=== PATIENT | male | born 1935 | race Caucasian/White ===

== ENCOUNTER 2017-06-20 06:46 | Emergency (ER) | payer MEDICARE, OTHER ==
[2017-06-20 07:08] VITALS: BP 152/90
--- NOTE | 2017-06-20 07:10 | EDM.PDOC ---
ED HPI GENERAL MEDICAL PROBLEM - General Chief Complaint: Gastrointestinal Problem Stated Complaint: BLOOD IN STOOL Time Seen by Provider: 06/20/17 07:04 Source of Information: Reports: Patient History Limitations: Reports: No Limitations - History of Present Illness INITIAL COMMENTS - FREE TEXT/NARRATIVE: 82-year-old male presents to the ED with diarrhea stools since about 2100 last night. Sudden onset with mild associated cramping pain. States the diarrhea was bad enough that he was on the next toilet nearly consistently for 4-5 hours during the night. Stool surgeon noted to be bloody about midnight and have persisted. The last rebound once again. Blood. Associated mild abdominal cramping pain. No fever or chills. No recent antibiotic usage in the last month. Possibility of foodborne illness does exist easy noted a yesterday morning mostly excelled salvage and hamstring temperatures. States she did have peptic ulcer disease in the past 15 years ago was on Prevacid after an upper GI bleed. Currently not using any anti-inflammatories or aspirins. He takes one a medication for his blood pressure. No previous abdominal surgery. Onset: Sudden Onset Date: 06/19/17 Onset Time: 21:00 Duration: Hour(s): Location: Reports: Other (diarrhea with rectal bleeding. ) Quality: Reports: Other (Very mild cramping.) Severity: Moderate Improves with: Reports: None (Bleeding per rectum was moderate to severe. The last rebound once were. Blood) Worsens with: Reports: None Context: Denies: Activity, Exercise, Lifting, Sick Contact, Trauma, Other Associated Symptoms: Reports: No Other Symptoms. 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.) - Related Data Allergies Allergy/AdvReac Type Severity Reaction Status Date / Time No Known Allergies Allergy Verified 06/20/17 07:02 Home Meds: Home Meds Ciprofloxacin HCl [Cipro] 500 mg PO BID #12 tablet 06/20/17 [Rx] Past Medical History Cardiovascular History: Reports: Hypertension Gastrointestinal History: Reports: Gastritis, GERD, GI Bleed, PUD Musculoskeletal History: Reports: Arthritis, Osteoarthritis Social & Family History - Living Situation & Occupation Living situation: Reports: Single Occupation: Retired ED ROS GENERAL - Review of Systems Review Of Systems: See Below Constitutional: Denies: Fever, Chills, Malaise, Weakness, Fatigue, Weight Loss HEENT: Reports: No Symptoms, Other (poor dentition. ) Respiratory: Reports: No Symptoms Cardiovascular: Reports: No Symptoms Endocrine: Reports: No Symptoms GI/Abdominal: Reports: Diarrhea, Melena. Denies: Abdominal Pain : Reports: Frequency, Other (nocturia x 3. ) Skin: Reports: No Symptoms Neurological: Reports: No Symptoms Psychiatric: Reports: No Symptoms ED EXAM, GI/ABD - Physical Exam Exam: See Below Exam Limited By: No Limitations General Appearance: Alert, WD/WN, No Apparent Distress Eyes: Bilateral: Normal Appearance Throat/Mouth: Other (tongue is moderately dry and white coated. ) Neck: Normal Inspection, Supple, Non-Tender, Full Range of Motion. No: Carotid Bruit, Lymphadenopathy (L), Lymphadenopathy (R) Respiratory/Chest: No Respiratory Distress, Lungs Clear, Normal Breath Sounds, No Accessory Muscle Use, Chest Non-Tender Cardiovascular: Normal Peripheral Pulses, Regular Rate, Rhythm, No Edema, No Gallop GI/Abdominal Exam: Abnormal Bowel Sounds ( hyperactive in all 4 quadrants. ) Back Exam: Normal Inspection, Full Range of Motion. No: CVA Tenderness (L), CVA Tenderness (R) Extremities: Normal Inspection, Normal Range of Motion, Non-Tender, No Pedal Edema, Normal Capillary Refill Neurological: Alert, Oriented, CN II-XII Intact, Normal Cognition, Normal Gait Psychiatric: Normal Affect, Normal Mood Skin Exam: Warm, Dry, Intact, Normal Color, No Rash Course - Vital Signs Last Recorded V/S: Last Vital Signs Temp 36.6 C 06/20/17 07:00 Pulse 103 H 06/20/17 07:00 Resp 16 06/20/17 07:00 BP 152/90 H 06/20/17 07:00 Pulse Ox 100 06/20/17 07:00 Orthostatic Blood Pressure [ 136/89 Standing] Orthostatic Blood Pressure [ 143/99 Sitting] Orthostatic Blood Pressure [ 136/93 Supine] - Orders/Labs/Meds Orders: Active Orders 24 hr Category Date Time Status Orthostatic Vital Signs [RC] ASDIRECTED Care 06/20/17 07:03 Active CULTURE STOOL + SHIGATOX [RM] Stat Lab 06/20/17 08:00 Received Labs: Laboratory Tests 06/20/17 06/20/17 06/20/17 Range/Units 07:25 07:25 07:25 WBC 12.79 H (4.23-9.07) K/mm3 RBC 4.65 (4.63-6.08) M/mm3 Hgb 15.4 (13.7-17.5) gm/L Hct 43.3 (40.1-51.0) % MCV 93.1 H (79.0-92.2) fl MCH 33.1 H (25.7-32.2) pg MCHC 35.6 H (32.2-35.5) g/dl RDW Std Deviation 45.2 H (35.1-43.9) fL Plt Count 251 (163-337) K/mm3 MPV 9.7 (9.4-12.3) fl Neutrophils % (Manual) 84 H (40-60) % Band Neutrophils % 2 (0-10) % Lymphocytes % (Manual) 14 L (20-40) % Atypical Lymphs % 0 % Monocytes % (Manual) 0 L (2-10) % Eosinophils % (Manual) 0 L (0.8-7.0) % Basophils % (Manual) 0 L (0.2-1.2) Platelet Estimate Adequate Plt Morphology Comment Normal RBC Morph Comment Normal PT 11.2 (8.0-13.0) SECONDS INR 1.03 APTT 28 (22-36) SECONDS Sodium 139 (136-145) mEq/L Potassium 3.5 (3.5-5.1) mEq/L Chloride 103 (98-107) mEq/L Carbon Dioxide 24 (21-32) mEq/L Anion Gap 15.5 H (5-15) BUN 23 H (7-18) mg/dL Creatinine 1.2 (0.7-1.3) mg/dL Est Cr Clr Drug Dosing 42.63 mL/min Estimated GFR (MDRD) 58 (>60) mL/min BUN/Creatinine Ratio 19.2 H (14-18) Glucose 154 H (83-115) mg/dL Calcium 9.1 (8.5-10.1) mg/dL Total Bilirubin 1.0 (0.2-1.0) mg/dL AST 22 (15-37) U/L ALT 24 (16-63) U/L Alkaline Phosphatase 66 (46-116) U/L Total Protein 7.0 (6.4-8.2) g/dl Albumin 3.5 (3.4-5.0) g/dl Globulin 3.5 gm/dL Albumin/Globulin Ratio 1.0 (1-2) Blood Type 06/20/17 Range/Units 07:25 WBC (4.23-9.07) K/mm3 RBC (4.63-6.08) M/mm3 Hgb (13.7-17.5) gm/L Hct (40.1-51.0) % MCV (79.0-92.2) fl MCH (25.7-32.2) pg MCHC (32.2-35.5) g/dl RDW Std Deviation (35.1-43.9) fL Plt Count (163-337) K/mm3 MPV (9.4-12.3) fl Neutrophils % (Manual) (40-60) % Band Neutrophils % (0-10) % Lymphocytes % (Manual) (20-40) % Atypical Lymphs % % Monocytes % (Manual) (2-10) % Eosinophils % (Manual) (0.8-7.0) % Basophils % (Manual) (0.2-1.2) Platelet Estimate Plt Morphology Comment RBC Morph Comment PT (8.0-13.0) SECONDS INR APTT (22-36) SECONDS Sodium (136-145) mEq/L Potassium (3.5-5.1) mEq/L Chloride (98-107) mEq/L Carbon Dioxide (21-32) mEq/L Anion Gap (5-15) BUN (7-18) mg/dL Creatinine (0.7-1.3) mg/dL Est Cr Clr Drug Dosing mL/min Estimated GFR (MDRD) (>60) mL/min BUN/Creatinine Ratio (14-18) Glucose (83-115) mg/dL Calcium (8.5-10.1) mg/dL Total Bilirubin (0.2-1.0) mg/dL AST (15-37) U/L ALT (16-63) U/L Alkaline Phosphatase (46-116) U/L Total Protein (6.4-8.2) g/dl Albumin (3.4-5.0) g/dl Globulin gm/dL Albumin/Globulin Ratio (1-2) Blood Type A POSITIVE Meds: Medications Discontinued Medications Generic Name Dose Route Start Last Admin Trade Name Colby PRN Reason Stop Dose Admin Sodium Chloride 1,000 mls @ 125 mls/hr 06/20/17 07:15 06/20/17 07:38 Normal Saline IV 125 mls/hr ASDIRECTED ARVIN Administration Lidocaine HCl Confirm 06/20/17 07:35 06/20/17 07:44 Xylocaine 2% Jelly Administered 06/20/17 07:36 Not Given Dose 10 ml .ROUTE .STK-MED ONE Lidocaine HCl 10 ml 06/20/17 07:43 06/20/17 07:44 Xylocaine 2% Jelly MUCMEM 06/20/17 07:44 10 ml ONETIME ONE Administration - Radiology Interpretation Free Text/Narrative:: 82-year-old male presents to the ED with complaints of sudden onset of diarrhea stools 2100 hrs. last night with development of blood per rectum. The last 3 bowel movements have been. Blood per rectum and bright red in color. No pain with bowel movements. So she did diffuse abdominal cramping discomfort. No recent use of any antibiotics. Possibility of foodborne illness does exist as he ate out at a yesterday afternoon yesterday morning. No associated fever or chills. Satted upper GI bleed in the past but at present doesn't had any gastroesophageal symptoms. No dyspepsia. No odynophagia. Plan orthostatic BPs. IV normal saline at 150 mils per hour. Routine labs include coags. He does not take any blood thinners. Will arrange for sigmoidoscopy. - Re-Assessments/Exams Free Text/Narrative Re-Assessment/Exam: 06/20/17 07:33 Orthosatic BP`s are normal. 06/20/17 08:01 Rigid sigmoidoscopy performed without any complications. Went up to 16 cm and all encountered was bloody mucus. No significant hemorrhoids or anal fissures. No tumors or obvious abnormalities of the lower colon were identified. The blood and mucus has the appearance of the dysentery type of illness. Cultures were obtained and sent to the lab to microbiology. When they will do a Gram stain and look for white blood cells. The rest will be for culture. I will likely patient placed the patient on Cipro 500 mg twice daily for 6 days to clear up suspect infective diarrhea. 06/20/17 08:31 labs reveal a slightly elevated white count at 12.79 with 84% neutrophils and 2% bands. Hemoglobin is 15.4 with hematocrit of 43.3. Placed in 1000. Coags are normal. Chemistry shows a sodium of 139 potassium 3.5 chloride 103 bicarbonate 24. And a gap is 15.5 B1 is 23 glucose 154. As above the patient be treated for dysenteric-like illness with Cipro 500 mg twice a day for 6 days. Clear fluid diet avoiding all dairy products and no apple juice or grape juice until stools are formed back up. Departure - Departure Time of Disposition: 08:32 Disposition: Home, Self-Care 01 Condition: Fair Clinical Impression: Bacterial dysentery, Gastroenteritis - Discharge Information Prescriptions: Ciprofloxacin HCl [Cipro] 500 mg PO BID #12 tablet Instructions: Food Poisoning, Caun-ag-Bhzy Referrals: Cesar Ballard MD [Primary Care Provider] - Forms: ED Department Discharge Additional Instructions: Evaluation in the emergency room this morning in regards to development of diarrhea with blood and mucus. Into started last dated 2100 hrs. and persisted over the night. Last bowel movement was around 1:00 this morning which was mostly bloody. Associated mild abdominal cramping pain. No fever or chills. Had a look up into the lower colon with a short scope and encountered only blood and mucus characteristic of dysentery or bacterial infection of the GI tract. Therefore treatment is diet to be mostly clear fluids today such as Gatorade or Powerade as this will rehydrate you so much IV fluids. Suggest 5 ounces sipped per hour. Stay away from all dairy products and no apple juice or grape juice. When hungry made try soda crackers if tolerated may advance to light soup broth or turkey rice turkey noodle noodle-type soup etc. May then advance diet to toast, breads, hard-boiled egg or poached eggs.. Treatment is antibiotic Cipro 500 mg twice daily starting this morning. This was to be taken for 6 days. You should be markedly improved within 48 hours time. Usually able to resume full diet once stools are formed backup may resume dairy products etc. If not better in 48-72 hours I still blood and cramps or diarrhea you would need to be seen again. - My Orders Last 24 Hours: My Active Orders 06/20/17 07:03 Orthostatic Vital Signs [RC] ASDIRECTED 06/20/17 08:00 CULTURE STOOL + SHIGATOX [RM] Stat - Assessment/Plan Last 24 Hours: My Active Orders 06/20/17 07:03 Orthostatic Vital Signs [RC] ASDIRECTED 06/20/17 08:00 CULTURE STOOL + SHIGATOX [RM] Stat
[2017-06-20] MEDS ORDERED: Sodium Chloride 0.9% 1,000 ML IV SCH (07:15)
[2017-06-20] MEDS ORDERED: Lidocaine 2% Jelly 10 ML Urojet ONE (07:35)
[2017-06-20] MEDS ORDERED: Lidocaine 2% Jelly 10 ML Urojet MUCMEM ONE (07:43)
== END 2017-06-20 08:40 | disposition home or self-care (01) ==
LOC: JD.ED 06:46
DX: A04.9 Bacterial intestinal infection, unspecified (principal); I10 Essential (primary) hypertension; K21.9 Gastro-esophageal reflux disease without esophagitis; M19.90 Unspecified osteoarthritis, unspecified site; K92.1 Melena
CPT/HCPCS: 36415; 45300; 80053; 85025; 85610; 85730; 86900; 86901; 87046; 87427; 89055; 96360; 99284; J7040

== ENCOUNTER 2018-12-31 09:29 | Inpatient (IN) | payer MEDICARE, OTHER ==
[~2018-12-31 09:29] MED LIST: Acetaminophen/oxyCODONE 325-5 MG Tab PO PRN; Bupivacaine 0.75% 30 ML SDV ONE; Ketorolac 15 MG/ML SDV IVPUSH PRN; Lactated Ringers 1,000 ML IV SCH; Lidocaine 1% 4 ML ONE; Lidocaine 1%/Sod Bicarbonate in NS 8.4% 1 ML Syringe IDERM PRN; Propofol 200 MG/20 ML SDV ONE; Sodium Chloride 0.9% 10 ML Syringe FLUSH PRN; ceFAZolin 1 GM Vial ONE; fentaNYL 100 MCG/2 ML SDV IVPUSH PRN
--- NOTE | 2018-12-31 10:30 | PCM.PREANE ---
Preanesthetic Assessment - Procedure Proposed Procedure: Left Total Hip arthroplasty - Anesthesia/Transfusion/Family Hx Anesthesia History: No Prior Anesthesia Family History of Anesthesia Reaction: No Transfusion History: Prior Transfusion Without Reaction - Review of Systems General: No Symptoms Pulmonary: No Symptoms Cardiovascular: No Symptoms Gastrointestinal: No Symptoms Neurological: No Symptoms Other: Reports: None - Physical Assessment NPO Status Date: 12/31/18 NPO Status Time: 07:00 (water ) O2 Sat by Pulse Oximetry: 98 Respiratory Rate: 16 Vital Signs: Last Vital Signs Temp 36.8 C 12/31/18 09:50 Pulse 78 12/31/18 09:50 Resp 16 12/31/18 09:50 BP 138/82 12/31/18 09:50 Pulse Ox 98 12/31/18 09:50 ASA Class: 2 Mental Status: Alert & Oriented x3 Airway Class: Mallampati = 1 Dentition: Reports: Partial (upper partial denture ) ROM/Head Extension: Full Lungs: Clear to Auscultation, Normal Respiratory Effort Cardiovascular: Regular Rate, Regular Rhythm - Lab Values: Laboratory Last Values MRSA (PCR) Negative 12/19/18 09:06 - Allergies Allergies/Adverse Reactions: Allergies Allergy/AdvReac Type Severity Reaction Status Date / Time No Known Allergies Allergy Verified 12/28/18 14:38 - Anesthesia Plan Pre-Op Medication Ordered: None - Acknowledgements Anesthesia Type Planned: Spinal Pt an Appropriate Candidate for the Planned Anesthesia: Yes Alternatives and Risks of Anesthesia Discussed w Pt/Guardian: Yes Pt/Guardian Understands and Agrees with Anesthesia Plan: Yes PreAnesthesia Questionnaire HEENT History: Reports: Impaired Vision, Other (See Below) Other HEENT History: missing teeth. Wears eyeglasses. Cardiovascular History: Reports: Hypertension Respiratory History: Reports: None Gastrointestinal History: Reports: Gastritis, GERD, GI Bleed, PUD Other Gastrointestinal History: gastric ulcer. 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 Musculoskeletal History: Reports: Arthritis, Osteoarthritis Neurological History: Reports: None Psychiatric History: Reports: Other (See Below) Other Psychiatric History: insomnia Endocrine/Metabolic History: Reports: None Hematologic History: Reports: Anemia, Blood Transfusion(s) Immunologic History: Reports: None Oncologic (Cancer) History: Reports: None Dermatologic History: Reports: Other (See Below) Other Dermatologic History: skin disorder - Infectious Disease History Infectious Disease History: Reports: Chicken Pox, Measles, Mumps - Past Surgical History Head Surgeries/Procedures: Reports: None Cardiovascular Surgical History: Reports: None Respiratory Surgical History: Reports: None GI Surgical History: Reports: EGD Female Surgical History: Reports: None Male Surgical History: Reports: None Neurological Surgical History: Reports: None Musculoskeletal Surgical History: Reports: None Oncologic Surgical History: Reports: None - SUBSTANCE USE Smoking Status *Q: Former Smoker Second Hand Smoke Exposure: No Recreational Drug Use History: No - HOME MEDS Home Medications: Home Meds Ibuprofen 200 mg PO Q4H PRN 12/28/18 [History] Lisinopril/Hydrochlorothiazide [Lisinopril-Hctz 20-12.5 mg Tab] 1 tab PO DAILY 12/28/18 [History] Zolpidem Tartrate [Ambien] 5 mg PO BEDTIME PRN 12/28/18 [History] amLODIPine [Norvasc] 5 mg PO DAILY 12/28/18 [History] - CURRENT (IN HOUSE) MEDS Current Meds: Current Medications Morphine Sulfate 8 mg/Epinephrine HCl 0.3 mg/Cefuroxime Sodium 750 mg/Ketorolac Tromethamine 30 mg/Sodium Chloride 27.9 ml 0 mg .XX ONETIME ONE Stop: 12/31/18 11:01 Docusate Sodium (Colace) 100 mg PO BID [facility] Fentanyl (Sublimaze) 25 mcg IVPUSH Q5M PRN PRN Reason: Pain Lactated Ringer's (Ringers, Lactated) 1,000 mls @ 125 mls/hr IV ASDIRECTED [facility] Cefazolin Sodium/Dextrose 2 gm (/ Premix) 50 mls @ 100 mls/hr IV Q8H [facility] Stop: 12/31/18 23:29 Ketorolac Tromethamine (Toradol) 15 mg IVPUSH Q6H PRN PRN Reason: Pain Lidocaine/Sodium Bicarbonate (Buffered Lidocaine 1% In Ns 8.4%) 0.25 ml IDERM ONETIME PRN PRN Reason: Prior to IV Start Stop: 12/31/18 16:00 Oxycodone/Acetaminophen (Percocet 325-5 Mg) 1 - 2 tab PO Q4H PRN PRN Reason: Pain Rivaroxaban (Xarelto) 10 mg PO DAILY [facility] Sodium Chloride (Saline Flush) 10 ml FLUSH ASDIRECTED PRN PRN Reason: Keep Vein Open Discontinued Medications Bupivacaine HCl (Sensorcaine-Mpf 0.75%) Confirm Administered Dose 30 ml .ROUTE .STK-MED ONE Stop: 12/31/18 09:24 Cefazolin Sodium (Ancef) Confirm Administered Dose 2 gm .ROUTE .STK-MED ONE Stop: 12/31/18 09:19 Lidocaine HCl (Xylocaine-Mpf 1%) Confirm Administered Dose 4 mls @ as directed .ROUTE .STK-MED ONE Stop: 12/31/18 09:19 Lidocaine HCl (Xylocaine-Mpf 1%) Confirm Administered Dose 5 mls @ as directed .ROUTE .STK-MED ONE Stop: 12/31/18 09:24 Propofol (Diprivan 20 Ml) Confirm Administered Dose 400 mg .ROUTE .STK-MED ONE Stop: 12/31/18 09:19
[2018-12-31] MEDS ORDERED: Iodine/Sodium Iodide 2% Tincture 30 ML Bottle ONE (10:45)
[2018-12-31] MEDS ORDERED: ceFAZolin 1 GM Vial ONE (10:45)
[2018-12-31] MEDS ORDERED: Vancomycin 1 GM SDV ONE (10:45)
[2018-12-31] MEDS ORDERED: Bupivacaine 0.25% 30 ML SDV ONE (10:45)
[2018-12-31] MEDS ORDERED: Phenylephrine/Normal Saline 100 MCG/ML 10 ML Syringe ONE ×2 (12:52→12:54)
[2018-12-31] MEDS ORDERED: Ketamine 500 mg/10 ML MDV ONE (13:10)
[2018-12-31] MEDS ORDERED: Lactated Ringers 1,000 ML ONE (13:33)
[2018-12-31] MEDS ORDERED: Propofol 200 MG/20 ML SDV ONE (13:44)
[2018-12-31] MEDS: Morphine 8 MG, EPINEPHrine 0.3 MG, Cefuroxime 750 MG, Ketorolac 30 MG, Sodium Chloride ... ONE ×10 (13:52→19:22)
[2018-12-31] MEDS ORDERED: ePHEDrine/Normal Saline 25 MG/5 ML Syringe ONE (13:57)
[2018-12-31] MEDS ORDERED: Zolpidem 5 MG Tab PO PRN (14:15)
[2018-12-31] MEDS ORDERED: Acetaminophen/HYDROcodone 325-5 MG Tab PO PRN (14:31)
[2018-12-31] MEDS ORDERED: Ondansetron 4 MG/2 ML SDV IVPUSH PRN (14:35)
--- NOTE | 2018-12-31 14:35 | PCM.POSTAN ---
POST ANESTHESIA ASSESSMENT - MENTAL STATUS Mental Status: Alert - VITAL SIGNS Pulse Rate: 80 SaO2: 98 Resp Rate: 16 Blood Pressure: 114/57 Temperature: 36.4 C - RESPIRATORY Respiratory Status: Respiratory Rate WNL, Airway Patent, O2 Saturation Stable, Supplemental Oxygen - CARDIOVASCULAR CV Status: Pulse Rate WNL, Blood Pressure Stable - GASTROINTESTINAL GI Status: No Symptoms - PAIN Pain Score: 0 - POST OP HYDRATION Hydration Status: Adequate & Stable
--- NOTE | 2018-12-31 15:36 | CR ---
Pelvis and left hip: AP view of the pelvis was obtained as well as crosstable lateral view of the left hip. Comparison: No prior pelvis or hip exam. Left hip prosthesis is seen. Components are aligned. Soft tissue air is noted from the surgical procedure. Degenerative change is partially visualized within the lower lumbar spine. Moderate joint space narrowing is seen within the right hip. No fracture or other abnormality is appreciated. Osteopenia is noted. Impression: 1. Recently placed left hip prosthesis. 2. Other degenerative change as noted above. Osteopenia. Diagnostic code #2
--- NOTE | 2018-12-31 18:14 | PCM.CONS ---
H&P History of Present Illness - General Date of Service: 12/31/18 Admit Problem/Dx: Admission Diagnosis/Problem Admission Diagnosis/Problem Osteoarthritis of hip - History of Present Illness Initial Comments - Free Text/Narative: Hospital service was called and assisted on this 83-year-old male who underwent a left total hip arthroplasty today. Patient has a history of hypertension. No reported complications during surgery. Patient is currently without any complaints. He denies any chest pain, shortness of breath, orthopnea, or abdominal pain. Left Hip Pain Score (Numeric/FACES): 0 - Related Data Allergies/Adverse Reactions: Allergies Allergy/AdvReac Type Severity Reaction Status Date / Time No Known Allergies Allergy Verified 12/31/18 15:38 Home Medications: Home Meds Lisinopril/Hydrochlorothiazide [Lisinopril-Hctz 20-12.5 mg Tab] 1 tab PO DAILY 12/28/18 [History] Zolpidem Tartrate [Ambien] 5 mg PO BEDTIME PRN 12/28/18 [History] amLODIPine [Norvasc] 5 mg PO DAILY 12/28/18 [History] Acetaminophen/HYDROcodone [[place] 325-5 MG] 1 - 2 tab PO Q6H PRN #60 tablet 12/31 [Rx] Docusate Sodium [Colace] 100 mg PO BID cap 12/31/18 [Rx] Rivaroxaban [Xarelto] 10 mg PO DAILY #35 tablet 12/31/18 [Rx] Past Medical History HEENT History: Reports: Impaired Vision, Other (See Below) Other HEENT History: missing teeth. Wears eyeglasses. Cardiovascular History: Reports: Hypertension Respiratory History: Reports: None Gastrointestinal History: Reports: Gastritis, GERD, GI Bleed, PUD Other Gastrointestinal History: gastric ulcer. 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 Musculoskeletal History: Reports: Arthritis, Osteoarthritis Neurological History: Reports: None Psychiatric History: Reports: Other (See Below) Other Psychiatric History: insomnia Endocrine/Metabolic History: Reports: None Hematologic History: Reports: Anemia, Blood Transfusion(s) Immunologic History: Reports: None Oncologic (Cancer) History: Reports: None Dermatologic History: Reports: Other (See Below) Other Dermatologic History: skin disorder - Infectious Disease History Infectious Disease History: Reports: Chicken Pox, Measles, Mumps - Past Surgical History Head Surgeries/Procedures: Reports: None Cardiovascular Surgical History: Reports: None Respiratory Surgical History: Reports: None GI Surgical History: Reports: EGD Male Surgical History: Reports: None Neurological Surgical History: Reports: None Musculoskeletal Surgical History: Reports: None Oncologic Surgical History: Reports: None Social & Family History - Tobacco Use Smoking Status *Q: Former Smoker Used Tobacco, but Quit: Yes Month/Year Tobacco Last Used: 1999 Second Hand Smoke Exposure: No - Caffeine Use Caffeine Use: Reports: None - Recreational Drug Use Recreational Drug Use: No - Living Situation & Occupation Living situation: Reports: Single Occupation: Retired H&P Review of Systems - Review of Systems: Review Of Systems: ROS reveals no pertinent complaints other than HPI. Exam - Exam Exam: See Below - Vital Signs Vital Signs: Last Vital Signs Temp 97.0 F 12/31/18 15:15 Pulse 80 12/31/18 14:34 Resp 16 12/31/18 15:15 BP 126/68 12/31/18 15:15 Pulse Ox 98 12/31/18 15:15 Weight: 126 lb 5.2 oz - Exam General: Alert, Oriented HEENT: Conjunctiva Clear, Mucosa Moist & Twin Neck: Supple Lungs: Clear to Auscultation, Normal Respiratory Effort Cardiovascular: Regular Rate, Regular Rhythm GI/Abdominal Exam: Normal Bowel Sounds, Soft, Non-Tender, No Organomegaly, No Distention, No Abnormal Bruit Extremities: Normal Inspection, No Pedal Edema, Normal Capillary Refill Skin: Warm, Dry, Intact Neuro Extensive - Mental Status: Alert, Oriented x3, Normal Mood/Affect Psychiatric: Alert, Normal Affect, Normal Mood - Patient Data Lab Results Last 24 hrs: Laboratory Results - last 24 hr 12/31/18 Range/Units 10:08 Blood Type A POSITIVE Gel Antibody Screen Negative Consult PN Assessment/Plan Procedures: Procedures BLOOD TYPING SEROLOGIC ABO (06/20/17) BLOOD TYPING SEROLOGIC RH(D) (06/20/17) COMPLETE CBC W/AUTO DIFF WBC (06/20/17) COMPREHEN METABOLIC PANEL (06/20/17) DRAIN/INJ JOINT/BURSA W/O US (02/23/18) EMERGENCY DEPT VISIT (06/20/17) HYDRATION IV INFUSION INIT (06/20/17) LEUKOCYTE ASSESSMENT FECAL (06/20/17) PROCTOSIGMOIDOSCOPY DX (06/20/17) PROTHROMBIN TIME (06/20/17) ROUTINE VENIPUNCTURE (06/20/17) SHIGA-LIKE TOXIN AG IA (06/20/17) STOOL CULTR AEROBIC BACT EA (06/20/17) THROMBOPLASTIN TIME PARTIAL (06/20/17) TISSUE EXAM BY PATHOLOGIST (04/29/16) (1) HTN (hypertension) SNOMED Code(s): 66779983 Code(s): I10 - ESSENTIAL (PRIMARY) HYPERTENSION Current Visit: Yes Problem List Initiated/Reviewed/Updated: Yes Plan: s/p L OZIEL * orthopedics primary * No current pain * No complications HTN * Restart home meds. Lisinopril/HCTZ, amlodipine * Follow-up in the morning. Insomnia * Continue Ambien 5 mg a day. Expect discharge in the morning. Requesting Provider: Dr. Sotomayor Date Consult Requested: 12/31/18 Reason for Consult: Medical management Patient History Reviewed: Yes Admission H&P Reviewed: Yes Notified Requestor: Yes
[2018-12-31] MEDS: Docusate Sodium 100 MG Cap PO SCH (20:18)
[2018-12-31] MEDS: ceFAZolin 2 GM in Premix Bag 1 BAG IV SCH (20:19)
[2019-01-01] MEDS: ceFAZolin 2 GM in Premix Bag 1 BAG IV SCH ×2 (03:38→11:39)
--- NOTE | 2019-01-01 06:38 | PCM.CONSN ---
<Venkata Corbin - Last Filed: 01/01/19 08:09> - General Info Date of Service: 01/01/19 Admission Dx/Problem (Free Text): Admission Diagnosis/Problem Admission Diagnosis/Problem Osteoarthritis of hip Functional Status: Reports: Pain Controlled, Tolerating Diet, Ambulating, Urinating, Incentive Spirometry. Denies: New Symptoms - Review of Systems General: Reports: No Symptoms. Denies: Fever, Chills HEENT: Reports: No Symptoms. Denies: Headaches, Sore Throat Pulmonary: Reports: No Symptoms. Denies: Shortness of Breath, Cough, Sputum, Wheezing Cardiovascular: Reports: No Symptoms. Denies: Chest Pain, Palpitations, Dyspnea on Exertion, Edema Gastrointestinal: Reports: No Symptoms. Denies: Abdominal Pain, Constipation, Diarrhea, Nausea, Vomiting Genitourinary: Reports: No Symptoms. Denies: Pain Musculoskeletal: Reports: No Symptoms, Leg Pain Skin: Reports: No Symptoms. Denies: Cyanosis Neurological: Reports: No Symptoms Psychiatric: Reports: No Symptoms - Patient Data Vitals - Most Recent: Last Vital Signs Temp 98.1 F 01/01/19 03:36 Pulse 79 01/01/19 03:36 Resp 14 01/01/19 03:36 BP 138/79 01/01/19 03:36 Pulse Ox 97 01/01/19 03:36 Weight - Most Recent: 130 lb 8 oz I&O - Last 24 Hours: Intake & Output 12/31/18 12/31/18 01/01/19 14:59 22:59 06:59 Intake Total 180 700 Output Total 800 Balance 180 -100 Lab Results Last 24 Hours: Laboratory Results - last 24 hr 12/31/18 Range/Units 10:08 Blood Type A POSITIVE Gel Antibody Screen Negative Med Orders - Current: Current Medications Hydrocodone Bitart/Acetaminophen (Warren 325-5 Mg) 1 - 2 tab PO Q4H PRN PRN Reason: Pain Amlodipine Besylate (Norvasc) 5 mg PO DAILY [facility] Docusate Sodium (Colace) 100 mg PO BID [facility] Last Admin: 12/31/18 20:18 Dose: 100 mg Fentanyl (Sublimaze) 25 mcg IVPUSH Q5M PRN PRN Reason: Pain Hydrochlorothiazide (Hydrochlorothiazide) 12.5 mg PO DAILY [facility] Cefazolin Sodium/Dextrose 2 gm (/ Premix) 50 mls @ 100 mls/hr IV Q8H [facility] Stop: 01/01/19 12:29 Last Admin: 01/01/19 03:38 Dose: 100 mls/hr Ketorolac Tromethamine (Toradol) 15 mg IVPUSH Q6H PRN PRN Reason: Pain Lisinopril (Prinivil) 20 mg PO DAILY [facility] Rivaroxaban (Xarelto) 10 mg PO DAILY [facility] Sodium Chloride (Saline Flush) 10 ml FLUSH ASDIRECTED PRN PRN Reason: Keep Vein Open Zolpidem Tartrate (Ambien) 5 mg PO BEDTIME PRN PRN Reason: Insomnia Last Admin: 12/31/18 22:27 Dose: 5 mg Discontinued Medications Bupivacaine HCl (Sensorcaine-Mpf 0.75%) Confirm Administered Dose 30 ml .ROUTE .STK-MED ONE Stop: 12/31/18 09:24 Bupivacaine HCl (Marcaine 0.25%) Confirm Administered Dose 30 ml .ROUTE .STK- MED ONE Stop: 12/31/18 10:46 Last Admin: 12/31/18 13:53 Dose: 30 ml Cefazolin Sodium (Ancef) Confirm Administered Dose 2 gm .ROUTE .STK-MED ONE Stop: 12/31/18 09:19 Last Admin: 12/31/18 13:47 Dose: 2 gm Cefazolin Sodium (Ancef) Confirm Administered Dose 2 gm .ROUTE .STK-MED ONE Stop: 12/31/18 10:46 Morphine Sulfate 8 mg/Epinephrine HCl 0.3 mg/Cefuroxime Sodium 750 mg/Ketorolac Tromethamine 30 mg/Sodium Chloride 27.9 ml 0 mg .XX ONETIME ONE Stop: 12/31/18 11:01 Last Admin: 12/31/18 19:22 Dose: Not Given Ephedrine Sulfate (Ephedrine In Ns) Confirm Administered Dose 25 mg .ROUTE .STK- MED ONE Stop: 12/31/18 13:58 Lactated Ringer's (Ringers, Lactated) 1,000 mls @ 125 mls/hr IV ASDIRECTED [facility] Last Admin: 12/31/18 10:08 Dose: 125 mls/hr Lidocaine HCl (Xylocaine-Mpf 1%) Confirm Administered Dose 4 mls @ as directed .ROUTE .STK-MED ONE Stop: 12/31/18 09:19 Lidocaine HCl (Xylocaine-Mpf 1%) Confirm Administered Dose 5 mls @ as directed .ROUTE .STK-MED ONE Stop: 12/31/18 09:24 Lactated Ringer's (Ringers, Lactated) Confirm Administered Dose 1,000 mls @ as directed .ROUTE .STK-MED ONE Stop: 12/31/18 13:34 Acetaminophen (Ofirmev) 65 mls @ 390 mls/hr IV NOW ONE Stop: 12/31/18 14:45 Last Admin: 12/31/18 14:56 Dose: 390 mls/hr Iodine (Iodine 2% Mild Tincture) Confirm Administered Dose 30 ml .ROUTE .STK- MED ONE Stop: 12/31/18 10:46 Last Admin: 12/31/18 13:45 Dose: 30 ml Ketamine HCl (Ketalar) Confirm Administered Dose 500 mg .ROUTE .STK-MED ONE Stop: 12/31/18 13:11 Lidocaine/Sodium Bicarbonate (Buffered Lidocaine 1% In Ns 8.4%) 0.25 ml IDERM ONETIME PRN PRN Reason: Prior to IV Start Stop: 12/31/18 16:00 Ondansetron HCl (Zofran) 4 mg IVPUSH ONETIME PRN PRN Reason: Nausea/Vomiting Stop: 12/31/18 21:00 Oxycodone/Acetaminophen (Percocet 325-5 Mg) 1 - 2 tab PO Q4H PRN PRN Reason: Pain Phenylephrine HCl (Phenylephrine In Ns 100 Mcg/Ml) Confirm Administered Dose 1 mg .ROUTE .STK-MED ONE Stop: 12/31/18 12:53 Phenylephrine HCl (Phenylephrine In Ns 100 Mcg/Ml) Confirm Administered Dose 1 mg .ROUTE .STK-MED ONE Stop: 12/31/18 12:55 Propofol (Diprivan 20 Ml) Confirm Administered Dose 400 mg .ROUTE .STK-MED ONE Stop: 12/31/18 09:19 Propofol (Diprivan 20 Ml) Confirm Administered Dose 200 mg .ROUTE .STK-MED ONE Stop: 12/31/18 13:45 Tranexamic Acid (Cyklokapron) Confirm Administered Dose 1,000 mg .ROUTE .STK- MED ONE Stop: 12/31/18 10:46 Last Admin: 12/31/18 13:55 Dose: 1,000 mg Vancomycin HCl (Vancomycin) Confirm Administered Dose 1 gm .ROUTE .Fieldglass-MED ONE Stop: 12/31/18 10:46 Last Admin: 12/31/18 13:55 Dose: 1 gm - Exam Quality Assessment: DVT Prophylaxis General: Alert, Oriented, Cooperative, No Acute Distress HEENT: Pupils Equal, Pupils Reactive, EOMI, Mucous Membr. Moist/[place] Neck: Supple, Trachea Midline, No JVD Lungs: Clear to Auscultation, Normal Respiratory Effort Cardiovascular: Regular Rate, Regular Rhythm GI/Abdominal Exam: Normal Bowel Sounds, Soft, Non-Tender, No Organomegaly, No Distention (Male) Exam: Deferred Back Exam: Normal Inspection, Full Range of Motion Extremities: No Pedal Edema, Normal Capillary Refill, Leg Pain, Limited Range of Motion, Other (Bandage in place on left leg. Cooling pack in place ) Peripheral Pulses: 2+: Radial (L), Radial (R), Dorsalis Pedis (L), Dorsalis Pedis (R) Skin: Warm, Dry, Intact Wound/Incisions: Dressing Dry and Intact, No Drainage Neurological: No New Focal Deficit Psy/Mental Status: Alert, Normal Affect, Normal Mood Consult PN Assessment/Plan POD#: 1 Procedures: Procedures BLOOD TYPING SEROLOGIC ABO (06/20/17) BLOOD TYPING SEROLOGIC RH(D) (06/20/17) COMPLETE CBC W/AUTO DIFF WBC (06/20/17) COMPREHEN METABOLIC PANEL (06/20/17) DRAIN/INJ JOINT/BURSA W/O US (02/23/18) EMERGENCY DEPT VISIT (06/20/17) HYDRATION IV INFUSION INIT (06/20/17) LEUKOCYTE ASSESSMENT FECAL (06/20/17) PROCTOSIGMOIDOSCOPY DX (06/20/17) PROTHROMBIN TIME (06/20/17) ROUTINE VENIPUNCTURE (06/20/17) SHIGA-LIKE TOXIN AG IA (06/20/17) STOOL CULTR AEROBIC BACT EA (06/20/17) THROMBOPLASTIN TIME PARTIAL (06/20/17) TISSUE EXAM BY PATHOLOGIST (04/29/16) (1) S/P total hip arthroplasty SNOMED Code(s): 870058461515, 339536013817 Code(s): Z96.649 - PRESENCE OF UNSPECIFIED ARTIFICIAL HIP JOINT Priority: High Qualifiers: Laterality: left Qualified Code(s): Z96.642 - Presence of left artificial hip joint (2) HTN (hypertension) SNOMED Code(s): 01789079 Code(s): I10 - ESSENTIAL (PRIMARY) HYPERTENSION Priority: Medium Qualifiers: Hypertension type: unspecified Qualified Code(s): I10 - Essential (primary ) hypertension (3) Hypokalemia SNOMED Code(s): 85526725 Code(s): E87.6 - HYPOKALEMIA Priority: Medium Problem List Initiated/Reviewed/Updated: Yes Plan: I/P: Acute: S/P left total hip arthroplasty - post-operative day 1 -DVT prophylaxis and pain management per primary care team -PT/OT -IS/RT -Monitor oxygen saturation -Titrate oxygen as needed -Home medications reviewed -Vital signs stable -Monitor labs -Pre-operative Hgb was 15.8; Now 13.4 -Pre-operative GFR was 74; Now >60 -Pre-operative glucose was 120; Now 113 -Pre-operative bilirubin was 1.3; Now 1.1 Osteoarthritis of left hip -Pain management per primary care team Hypokalemia -Potassium 3.4 -Supplemented Chronic: Tobacco use HTN Insomnia Hx/o gastric ulcer Plan: CM for discharge planning GI prophylaxis Home medications as indicated Other orders as listed above Routine AM labs He is a full code. His PCP is Dr. Beard From a hospitalist standpoint James is doing very well. Pain is controlled and he has been up ambulating with therapies. He has urinated and is off of oxygen. Labs and vital signs remained stable. He has been utilizing his incentive spirometry. He is cleared for discharge pending primary team and PT/ OT agreement. Thank you for allowing us to participate in the care of this patient!! <Ariana Camacho - Last Filed: 01/01/19 19:20> - Patient Data Vitals - Most Recent: Last Vital Signs Temp 97.7 F 01/01/19 11:37 Pulse 77 01/01/19 11:37 Resp 18 01/01/19 11:37 BP 130/75 01/01/19 11:37 Pulse Ox 97 01/01/19 11:37 I&O - Last 24 Hours: Intake & Output 01/01/19 01/01/19 01/01/19 06:59 14:59 22:59 Intake Total 700 300 Output Total 800 Balance -100 300 Lab Results Last 24 Hours: Laboratory Results - last 24 hr 01/01/19 01/01/19 Range/Units 06:17 06:17 WBC 5.38 (4.23-9.07) K/mm3 RBC 4.12 L (4.63-6.08) M/mm3 Hgb 13.4 L (13.7-17.5) gm/L Hct 39.3 L (40.1-51.0) % MCV 95.4 H (79.0-92.2) fl MCH 32.5 H (25.7-32.2) pg MCHC 34.1 (32.2-35.5) g/dl RDW Std Deviation 45.0 H (35.1-43.9) fL Plt Count 218 (163-337) K/mm3 MPV 10.2 (9.4-12.3) fl Sodium 138 (136-145) mEq/L Potassium 3.4 L (3.5-5.1) mEq/L Chloride 104 (98-107) mEq/L Carbon Dioxide 25 (21-32) mEq/L Anion Gap 12.4 (5-15) BUN 17 (7-18) mg/dL Creatinine 0.9 (0.7-1.3) mg/dL Est Cr Clr Drug Dosing 50.24 mL/min Estimated GFR (MDRD) > 60 (>60) mL/min BUN/Creatinine Ratio 18.9 H (14-18) Glucose 113 (83-115) mg/dL Calcium 8.4 L (8.5-10.1) mg/dL Total Bilirubin 1.1 H (0.2-1.0) mg/dL AST 41 H (15-37) U/L ALT 22 (16-63) U/L Alkaline Phosphatase 63 (46-116) U/L Total Protein 5.9 L (6.4-8.2) g/dl Albumin 2.8 L (3.4-5.0) g/dl Globulin 3.1 gm/dL Albumin/Globulin Ratio 0.9 L (1-2) Med Orders - Current: Current Medications Discontinued Medications Hydrocodone Bitart/Acetaminophen (Warren 325-5 Mg) 1 - 2 tab PO Q4H PRN PRN Reason: Pain Last Admin: 01/01/19 08:29 Dose: 2 tab Amlodipine Besylate (Norvasc) 5 mg PO DAILY [facility] Last Admin: 01/01/19 08:26 Dose: 5 mg Bupivacaine HCl (Sensorcaine-Mpf 0.75%) Confirm Administered Dose 30 ml .ROUTE .STK-MED ONE Stop: 12/31/18 09:24 Bupivacaine HCl (Marcaine 0.25%) Confirm Administered Dose 30 ml .ROUTE .STK- MED ONE Stop: 12/31/18 10:46 Last Admin: 12/31/18 13:53 Dose: 30 ml Cefazolin Sodium (Ancef) Confirm Administered Dose 2 gm .ROUTE .STK-MED ONE Stop: 12/31/18 09:19 Last Admin: 12/31/18 13:47 Dose: 2 gm Cefazolin Sodium (Ancef) Confirm Administered Dose 2 gm .ROUTE .STK-MED ONE Stop: 12/31/18 10:46 Morphine Sulfate 8 mg/Epinephrine HCl 0.3 mg/Cefuroxime Sodium 750 mg/Ketorolac Tromethamine 30 mg/Sodium Chloride 27.9 ml 0 mg .XX ONETIME ONE Stop: 12/31/18 11:01 Last Admin: 12/31/18 19:22 Dose: Not Given Docusate Sodium (Colace) 100 mg PO BID [facility] Last Admin: 01/01/19 08:28 Dose: 100 mg Ephedrine Sulfate (Ephedrine In Ns) Confirm Administered Dose 25 mg .ROUTE .STK- MED ONE Stop: 12/31/18 13:58 Fentanyl (Sublimaze) 25 mcg IVPUSH Q5M PRN PRN Reason: Pain Hydrochlorothiazide (Hydrochlorothiazide) 12.5 mg PO DAILY [facility] Last Admin: 01/01/19 08:27 Dose: 12.5 mg Lactated Ringer's (Ringers, Lactated) 1,000 mls @ 125 mls/hr IV ASDIRECTED [facility] Last Admin: 12/31/18 10:08 Dose: 125 mls/hr Cefazolin Sodium/Dextrose 2 gm (/ Premix) 50 mls @ 100 mls/hr IV Q8H [facility] Stop: 01/01/19 12:29 Last Admin: 01/01/19 11:39 Dose: 100 mls/hr Lidocaine HCl (Xylocaine-Mpf 1%) Confirm Administered Dose 4 mls @ as directed .ROUTE .STK-MED ONE Stop: 12/31/18 09:19 Lidocaine HCl (Xylocaine-Mpf 1%) Confirm Administered Dose 5 mls @ as directed .ROUTE .STK-MED ONE Stop: 12/31/18 09:24 Lactated Ringer's (Ringers, Lactated) Confirm Administered Dose 1,000 mls @ as directed .ROUTE .STK-MED ONE Stop: 12/31/18 13:34 Acetaminophen (Ofirmev) 65 mls @ 390 mls/hr IV NOW ONE Stop: 12/31/18 14:45 Last Admin: 12/31/18 14:56 Dose: 390 mls/hr Iodine (Iodine 2% Mild Tincture) Confirm Administered Dose 30 ml .ROUTE .STK- MED ONE Stop: 12/31/18 10:46 Last Admin: 12/31/18 13:45 Dose: 30 ml Ketamine HCl (Ketalar) Confirm Administered Dose 500 mg .ROUTE .STK-MED ONE Stop: 12/31/18 13:11 Ketorolac Tromethamine (Toradol) 15 mg IVPUSH Q6H PRN PRN Reason: Pain Lidocaine/Sodium Bicarbonate (Buffered Lidocaine 1% In Ns 8.4%) 0.25 ml IDERM ONETIME PRN PRN Reason: Prior to IV Start Stop: 12/31/18 16:00 Lisinopril (Prinivil) 20 mg PO DAILY [facility] Last Admin: 01/01/19 08:26 Dose: 20 mg Ondansetron HCl (Zofran) 4 mg IVPUSH ONETIME PRN PRN Reason: Nausea/Vomiting Stop: 12/31/18 21:00 Oxycodone/Acetaminophen (Percocet 325-5 Mg) 1 - 2 tab PO Q4H PRN PRN Reason: Pain Phenylephrine HCl (Phenylephrine In Ns 100 Mcg/Ml) Confirm Administered Dose 1 mg .ROUTE .STK-MED ONE Stop: 12/31/18 12:53 Phenylephrine HCl (Phenylephrine In Ns 100 Mcg/Ml) Confirm Administered Dose 1 mg .ROUTE .STK-MED ONE Stop: 12/31/18 12:55 Potassium Chloride (Klor-Con M20) 40 meq PO Q4H [facility] Stop: 01/01/19 12:31 Last Admin: 01/01/19 11:38 Dose: 40 meq Propofol (Diprivan 20 Ml) Confirm Administered Dose 400 mg .ROUTE .STK-MED ONE Stop: 12/31/18 09:19 Propofol (Diprivan 20 Ml) Confirm Administered Dose 200 mg .ROUTE .STK-MED ONE Stop: 12/31/18 13:45 Rivaroxaban (Xarelto) 10 mg PO DAILY [facility] Last Admin: 01/01/19 10:00 Dose: 10 mg Sodium Chloride (Saline Flush) 10 ml FLUSH ASDIRECTED PRN PRN Reason: Keep Vein Open Tranexamic Acid (Cyklokapron) Confirm Administered Dose 1,000 mg .ROUTE .STK- MED ONE Stop: 12/31/18 10:46 Last Admin: 12/31/18 13:55 Dose: 1,000 mg Vancomycin HCl (Vancomycin) Confirm Administered Dose 1 gm .ROUTE .STK-MED ONE Stop: 12/31/18 10:46 Last Admin: 12/31/18 13:55 Dose: 1 gm Zolpidem Tartrate (Ambien) 5 mg PO BEDTIME PRN PRN Reason: Insomnia Last Admin: 12/31/18 22:27 Dose: 5 mg Consult PN Assessment/Plan Procedures: Procedures BLOOD TYPING SEROLOGIC ABO (06/20/17) BLOOD TYPING SEROLOGIC RH(D) (06/20/17) COMPLETE CBC W/AUTO DIFF WBC (06/20/17) COMPREHEN METABOLIC PANEL (06/20/17) DRAIN/INJ JOINT/BURSA W/O US (02/23/18) EMERGENCY DEPT VISIT (06/20/17) HYDRATION IV INFUSION INIT (06/20/17) LEUKOCYTE ASSESSMENT FECAL (06/20/17) PROCTOSIGMOIDOSCOPY DX (06/20/17) PROTHROMBIN TIME (06/20/17) ROUTINE VENIPUNCTURE (06/20/17) SHIGA-LIKE TOXIN AG IA (06/20/17) STOOL CULTR AEROBIC BACT EA (06/20/17) THROMBOPLASTIN TIME PARTIAL (06/20/17) TISSUE EXAM BY PATHOLOGIST (04/29/16) (1) HTN (hypertension) SNOMED Code(s): 15503349 Code(s): I10 - ESSENTIAL (PRIMARY) HYPERTENSION Priority: Medium Qualifiers: Hypertension type: unspecified Qualified Code(s): I10 - Essential (primary ) hypertension My Orders Last 24 Hours: My Active Orders 12/31/18 18:41 Ambulate [RC] BID 04/15/19 18:42 Antiembolic Devices [RC] BID Antiembolic Hose [OM.PC] Routine Plan: I personally examined and reviewed this patient's case and agree with the above plan.
--- NOTE | 2019-01-01 07:53 | PCM48HPAN ---
Post Anesthesia Note - EVALUATION WITHIN 48HRS OF ANESTHETIC Vital Signs in Normal Range: Yes Patient Participated in Evaluation: Yes Respiratory Function Stable: Yes Airway Patent: Yes Cardiovascular Function Stable: Yes Hydration Status Stable: Yes Pain Control Satisfactory: Yes Nausea and Vomiting Control Satisfactory: Yes Mental Status Recovered: Yes (minimal pain) Pulse Rate: 79 Resp Rate: 14 Temperature: 98.1 F Blood Pressure: 138/79
--- NOTE | 2019-01-01 08:03 | PCM.SURGPN ---
- General Info Date of Service: 01/01/19 POD#: 1 Functional Status: Reports: Pain Controlled, Tolerating Diet, Ambulating, Urinating, Incentive Spirometry - Patient Data Vitals - Most Recent: Last Vital Signs Temp 98.1 F 01/01/19 07:53 Pulse 79 01/01/19 07:53 Resp 14 01/01/19 07:53 BP 138/79 01/01/19 07:53 Pulse Ox 97 01/01/19 03:36 Weight - Most Recent: 130 lb 8 oz I&O - Last 24 Hours: Intake & Output 12/31/18 01/01/19 01/01/19 22:59 06:59 14:59 Intake Total 180 700 Output Total 800 Balance 180 -100 Lab Results Last 24 Hrs: Laboratory Results - last 24 hr 12/31/18 01/01/19 01/01/19 Range/Units 10:08 06:17 06:17 WBC 5.38 (4.23-9.07) K/mm3 RBC 4.12 L (4.63-6.08) M/mm3 Hgb 13.4 L (13.7-17.5) gm/L Hct 39.3 L (40.1-51.0) % MCV 95.4 H (79.0-92.2) fl MCH 32.5 H (25.7-32.2) pg MCHC 34.1 (32.2-35.5) g/dl RDW Std Deviation 45.0 H (35.1-43.9) fL Plt Count 218 (163-337) K/mm3 MPV 10.2 (9.4-12.3) fl Sodium 138 (136-145) mEq/L Potassium 3.4 L (3.5-5.1) mEq/L Chloride 104 (98-107) mEq/L Carbon Dioxide 25 (21-32) mEq/L Anion Gap 12.4 (5-15) BUN 17 (7-18) mg/dL Creatinine 0.9 (0.7-1.3) mg/dL Est Cr Clr Drug Dosing 50.24 mL/min Estimated GFR (MDRD) > 60 (>60) mL/min BUN/Creatinine Ratio 18.9 H (14-18) Glucose 113 (83-115) mg/dL Calcium 8.4 L (8.5-10.1) mg/dL Total Bilirubin 1.1 H (0.2-1.0) mg/dL AST 41 H (15-37) U/L ALT 22 (16-63) U/L Alkaline Phosphatase 63 (46-116) U/L Total Protein 5.9 L (6.4-8.2) g/dl Albumin 2.8 L (3.4-5.0) g/dl Globulin 3.1 gm/dL Albumin/Globulin Ratio 0.9 L (1-2) Blood Type A POSITIVE Gel Antibody Screen Negative Med Orders - Current: Current Medications Hydrocodone Bitart/Acetaminophen ([place] 325-5 Mg) 1 - 2 tab PO Q4H PRN PRN Reason: Pain Amlodipine Besylate (Norvasc) 5 mg PO DAILY [facility] Docusate Sodium (Colace) 100 mg PO BID [facility] Last Admin: 12/31/18 20:18 Dose: 100 mg Fentanyl (Sublimaze) 25 mcg IVPUSH Q5M PRN PRN Reason: Pain Hydrochlorothiazide (Hydrochlorothiazide) 12.5 mg PO DAILY [facility] Cefazolin Sodium/Dextrose 2 gm (/ Premix) 50 mls @ 100 mls/hr IV Q8H [facility] Stop: 01/01/19 12:29 Last Admin: 01/01/19 03:38 Dose: 100 mls/hr Ketorolac Tromethamine (Toradol) 15 mg IVPUSH Q6H PRN PRN Reason: Pain Lisinopril (Prinivil) 20 mg PO DAILY [facility] Rivaroxaban (Xarelto) 10 mg PO DAILY [facility] Sodium Chloride (Saline Flush) 10 ml FLUSH ASDIRECTED PRN PRN Reason: Keep Vein Open Zolpidem Tartrate (Ambien) 5 mg PO BEDTIME PRN PRN Reason: Insomnia Last Admin: 12/31/18 22:27 Dose: 5 mg Discontinued Medications Bupivacaine HCl (Sensorcaine-Mpf 0.75%) Confirm Administered Dose 30 ml .ROUTE .STK-MED ONE Stop: 12/31/18 09:24 Bupivacaine HCl (Marcaine 0.25%) Confirm Administered Dose 30 ml .ROUTE .STK- MED ONE Stop: 12/31/18 10:46 Last Admin: 12/31/18 13:53 Dose: 30 ml Cefazolin Sodium (Ancef) Confirm Administered Dose 2 gm .ROUTE .STK-MED ONE Stop: 12/31/18 09:19 Last Admin: 12/31/18 13:47 Dose: 2 gm Cefazolin Sodium (Ancef) Confirm Administered Dose 2 gm .ROUTE .STK-MED ONE Stop: 12/31/18 10:46 Morphine Sulfate 8 mg/Epinephrine HCl 0.3 mg/Cefuroxime Sodium 750 mg/Ketorolac Tromethamine 30 mg/Sodium Chloride 27.9 ml 0 mg .XX ONETIME ONE Stop: 12/31/18 11:01 Last Admin: 12/31/18 19:22 Dose: Not Given Ephedrine Sulfate (Ephedrine In Ns) Confirm Administered Dose 25 mg .ROUTE .STK- MED ONE Stop: 12/31/18 13:58 Lactated Ringer's (Ringers, Lactated) 1,000 mls @ 125 mls/hr IV ASDIRECTED [facility] Last Admin: 12/31/18 10:08 Dose: 125 mls/hr Lidocaine HCl (Xylocaine-Mpf 1%) Confirm Administered Dose 4 mls @ as directed .ROUTE .STK-MED ONE Stop: 12/31/18 09:19 Lidocaine HCl (Xylocaine-Mpf 1%) Confirm Administered Dose 5 mls @ as directed .ROUTE .STK-MED ONE Stop: 12/31/18 09:24 Lactated Ringer's (Ringers, Lactated) Confirm Administered Dose 1,000 mls @ as directed .ROUTE .STK-MED ONE Stop: 12/31/18 13:34 Acetaminophen (Ofirmev) 65 mls @ 390 mls/hr IV NOW ONE Stop: 12/31/18 14:45 Last Admin: 12/31/18 14:56 Dose: 390 mls/hr Iodine (Iodine 2% Mild Tincture) Confirm Administered Dose 30 ml .ROUTE .STK- MED ONE Stop: 12/31/18 10:46 Last Admin: 12/31/18 13:45 Dose: 30 ml Ketamine HCl (Ketalar) Confirm Administered Dose 500 mg .ROUTE .STK-MED ONE Stop: 12/31/18 13:11 Lidocaine/Sodium Bicarbonate (Buffered Lidocaine 1% In Ns 8.4%) 0.25 ml IDERM ONETIME PRN PRN Reason: Prior to IV Start Stop: 12/31/18 16:00 Ondansetron HCl (Zofran) 4 mg IVPUSH ONETIME PRN PRN Reason: Nausea/Vomiting Stop: 12/31/18 21:00 Oxycodone/Acetaminophen (Percocet 325-5 Mg) 1 - 2 tab PO Q4H PRN PRN Reason: Pain Phenylephrine HCl (Phenylephrine In Ns 100 Mcg/Ml) Confirm Administered Dose 1 mg .ROUTE .STK-MED ONE Stop: 12/31/18 12:53 Phenylephrine HCl (Phenylephrine In Ns 100 Mcg/Ml) Confirm Administered Dose 1 mg .ROUTE .STK-MED ONE Stop: 12/31/18 12:55 Propofol (Diprivan 20 Ml) Confirm Administered Dose 400 mg .ROUTE .STK-MED ONE Stop: 12/31/18 09:19 Propofol (Diprivan 20 Ml) Confirm Administered Dose 200 mg .ROUTE .STK-MED ONE Stop: 12/31/18 13:45 Tranexamic Acid (Cyklokapron) Confirm Administered Dose 1,000 mg .ROUTE .STK- MED ONE Stop: 12/31/18 10:46 Last Admin: 12/31/18 13:55 Dose: 1,000 mg Vancomycin HCl (Vancomycin) Confirm Administered Dose 1 gm .ROUTE .STK-MED ONE Stop: 12/31/18 10:46 Last Admin: 12/31/18 13:55 Dose: 1 gm - Exam Wound/Incisions: Dressing Dry and Intact General: Alert, Cooperative, No Acute Distress Lungs: Normal Respiratory Effort Extremities: Other (NVS intact for BLE. Mercy's negative. Left thigh soft, nontender.) - Problem List Review Problem List Initiated/Reviewed/Updated: Yes - My Orders Last 24 Hours: Active Orders 24 hr Category Date Time Status Ambulate [RC] BID Care 12/31/18 18:41 Active Antiembolic Devices [RC] BID Care 12/31/18 18:42 Active Communication Order [RC] ROUTINE Care 12/31/18 09:12 Active Cooling Warming Measures [RC] ASDIRECTED Care 12/31/18 09:12 Inactive Notify Provider [RC] ASDIRECTED Care 12/31/18 09:12 Active Notify Provider [RC] ASDIRECTED Care 12/31/18 14:35 Active Pulse Oximetry [RC] ASDIRECTED Care 12/31/18 14:35 Active Ready for Discharge [RC] PER UNIT ROUTINE Care 01/01/19 08:01 Ordered Vital Signs [RC] Q1H Care 12/31/18 09:11 Inactive Consult to Physician [CONS] Routine Cons 12/31/18 16:14 Active Regular Diet [DIET] Diet 12/31/18 Dinner Active Acetaminophen/HYDROcodone [Cutler 325-5 MG] Med 12/31/18 14:31 Active 1 - 2 tab PO Q4H PRN Docusate Sodium [Colace] Med 12/31/18 21:00 Active 100 mg PO BID Lisinopril [Prinivil] Med 01/01/19 09:00 Active 20 mg PO DAILY Rivaroxaban [Xarelto] Med 01/01/19 09:00 Pending 10 mg PO DAILY Zolpidem [Ambien] Med 12/31/18 14:15 Active 5 mg PO BEDTIME PRN amLODIPine [Norvasc] Med 01/01/19 09:00 Active 5 mg PO DAILY ceFAZolin [Ancef] 2 gm Med 12/31/18 20:00 Active Premix Bag 1 bag IV Q8H fentaNYL [Sublimaze] Med 12/31/18 09:12 Active 25 mcg IVPUSH Q5M PRN hydroCHLOROthiazide Med 01/01/19 09:00 Active 12.5 mg PO DAILY Antiembolic Hose [OM.PC] Routine Oth 12/31/18 18:42 Ordered Medication Orders Hydrocodone Bitart/Acetaminophen (Cutler 325-5 Mg) 1 - 2 tab PO Q4H PRN PRN Reason: Pain Amlodipine Besylate (Norvasc) 5 mg PO DAILY ARVIN Docusate Sodium (Colace) 100 mg PO BID [facility] Last Admin: 12/31/18 20:18 Dose: 100 mg Fentanyl (Sublimaze) 25 mcg IVPUSH Q5M PRN PRN Reason: Pain Hydrochlorothiazide (Hydrochlorothiazide) 12.5 mg PO DAILY ARVIN Cefazolin Sodium/Dextrose 2 gm (/ Premix) 50 mls @ 100 mls/hr IV Q8H ARVIN Stop: 01/01/19 12:29 Last Admin: 01/01/19 03:38 Dose: 100 mls/hr Infusion: 12/31/18 20:49 Dose: 100 mls/hr Admin: 12/31/18 20:19 Dose: 100 mls/hr Ketorolac Tromethamine (Toradol) 15 mg IVPUSH Q6H PRN PRN Reason: Pain Lisinopril (Prinivil) 20 mg PO DAILY ARVIN Rivaroxaban (Xarelto) 10 mg PO DAILY ARVIN Sodium Chloride (Saline Flush) 10 ml FLUSH ASDIRECTED PRN PRN Reason: Keep Vein Open Zolpidem Tartrate (Ambien) 5 mg PO BEDTIME PRN PRN Reason: Insomnia Last Admin: 12/31/18 22:27 Dose: 5 mg - Assessment Assessment (Free Text/Narrative):: POD#1 - left OZIEL - Plan Plan (Free Text/Narrative):: 1. Xarelto for VTE prophylaxis. Hx gastric ulcer. 2. Discharge to home today if cleared by Hospitalist service and therapies. 3. Hgb 13.4. The pt's case was discussed with Dr. Sotomayor.
--- NOTE | 2019-01-01 08:05 | PCM.DCSUM1 ---
Discharge Summary - Hospital Course Brief History: James is an 83 yo male who underwent left OZIEL with Dr. Sotomayor on 12-31-2018. The procedure was completed under spinal anesthesia with sedation. The pt tolerated the procedure well and was admitted to the Medical-Surgical Unit. Medical management was provided by the Hospitalist service. The pt's Hospital course was uneventful. The pt's Hgb on POD#1 was 13.4. On POD#1, Xarelto 10mg PO daily was initiated for VTE prophylaxis. SCDs and TEDs were also ordered. A Mepilex dressing was placed at the incision site at the time of surgery and remained clean and dry. The pt participated in P.T. and O.T. and progressed well. He followed the OZIEL precautions. The pt was allowed to WBAT. On POD#1, the pt was deemed appropriate to discharge to home with a family member. - Discharge Data Discharge Date: 01/01/19 Discharge Disposition: Home, Self-Care 01 Condition: Good - Patient Summary/Data Consults: Consultations 12/31/18 06:58 PT Evaluation and Treatment [CONS] Routine 12/31/18 06:59 OT Evaluation and Treatment [CONS] Routine 12/31/18 16:14 Consult to Physician [CONS] Routine - Patient Instructions Diet: Usual Diet as Tolerated Activity: Apply Ice, As Tolerated, Elevate Extremity, Full Weight Bearing Activity, Other: Follow the total hip precautions. Driving: Do Not Drive Showering/Bathing: May Shower Wound/Incision Care: Keep Operative Site/Wound Site Clean and Dry, Do NOT Change Dressing Notify Provider of: Fever, Increased Pain, Swelling and Redness, Drainage, Nausea and/or Vomiting Other/Special Instructions: Please get up and moving around EVERY HOUR while awake. This helps to prevent blood clots. Please use your walker and have help with mobility as needed. Take a short walk in your home every hour while awake. Please take the Xarelto blood thinner medication daily as directed. At home, please complete the exercises that you learned during the Hospital stay. Schedule for physical therapy. Use the pain medication as needed. The medication may cause drowsiness and constipation. Contact your primary care provider for instructions if you are constipated. You may use a stool softener like docusate sodium or Colace 100mg twice daily and/or a laxative like Miralax daily for constipation. Increase your water and fiber intake while you are using the pain medication. Discontinue use of the pain medication as soon as able. Please do not use other medications that may cause drowsiness (other pain medications, anxiety pills, cold medications, sleeping pills, etc) while using the prescription pain medication. You could use Tylenol or acetaminophen for pain. Please ensure you are not using over 4000mg or 4 grams of Tylenol or acetaminophen per day. Your pain pill has 325mg of acetaminophen in each tablet. Do not use alcohol while using the pain medication. Wear the CHRISTY hose during the day and you may remove these at night. Elevate the limb to decrease swelling. Place ice to the area often. Place a towel between your skin and the blue pad. Use the incentive spirometer often. Take deep breaths throughout the day. Please keep the dressing in place until follow-up. Notify the Clinic if the dressing becomes saturated. Increase your protein intake while you are healing. If you have diabetes, please closely monitor your blood sugars and notify your primary care provider with abnormal values. Elevated blood sugars increases the risk of infection. Call the Clinic with questions or concerns - [phone]. - Discharge Plan *PRESCRIPTION DRUG MONITORING PROGRAM REVIEWED*: No *COPY OF PRESCRIPTION DRUG MONITORING REPORT IN PATIENT AMELIA: No Prescriptions/Med Rec: Acetaminophen/HYDROcodone [[place] 325-5 MG] 1 - 2 tab PO Q6H PRN #60 tablet PRN Reason: Pain Rivaroxaban [Xarelto] 10 mg PO DAILY #35 tablet Home Medications: Home Meds Lisinopril/Hydrochlorothiazide [Lisinopril-Hctz 20-12.5 mg Tab] 1 tab PO DAILY 12/28/18 [History] Zolpidem Tartrate [Ambien] 5 mg PO BEDTIME PRN 12/28/18 [History] amLODIPine [Norvasc] 5 mg PO DAILY 12/28/18 [History] Acetaminophen/HYDROcodone [[place] 325-5 MG] 1 - 2 tab PO Q6H PRN #60 tablet 12/31 [Rx] Docusate Sodium [Colace] 100 mg PO BID cap 12/31/18 [Rx] Rivaroxaban [Xarelto] 10 mg PO DAILY #35 tablet 12/31/18 [Rx] Patient Handouts: Rivaroxaban oral tablets Referrals: Maria Del Carmen Epperson PA-C [Physician Chief Scientist] - - Discharge Summary/Plan Comment DC Time >30 min.: No - Patient Data Vitals - Most Recent: Last Vital Signs Temp 98.1 F 01/01/19 07:53 Pulse 79 01/01/19 07:53 Resp 14 01/01/19 07:53 BP 138/79 01/01/19 07:53 Pulse Ox 97 01/01/19 03:36 Weight - Most Recent: 130 lb 8 oz I&O - Last 24 hours: Intake & Output 12/31/18 01/01/19 01/01/19 22:59 06:59 14:59 Intake Total 180 700 Output Total 800 Balance 180 -100 Lab Results - Last 24 hrs: Laboratory Results - last 24 hr 12/31/18 01/01/19 01/01/19 Range/Units 10:08 06:17 06:17 WBC 5.38 (4.23-9.07) K/mm3 RBC 4.12 L (4.63-6.08) M/mm3 Hgb 13.4 L (13.7-17.5) gm/L Hct 39.3 L (40.1-51.0) % MCV 95.4 H (79.0-92.2) fl MCH 32.5 H (25.7-32.2) pg MCHC 34.1 (32.2-35.5) g/dl RDW Std Deviation 45.0 H (35.1-43.9) fL Plt Count 218 (163-337) K/mm3 MPV 10.2 (9.4-12.3) fl Sodium 138 (136-145) mEq/L Potassium 3.4 L (3.5-5.1) mEq/L Chloride 104 (98-107) mEq/L Carbon Dioxide 25 (21-32) mEq/L Anion Gap 12.4 (5-15) BUN 17 (7-18) mg/dL Creatinine 0.9 (0.7-1.3) mg/dL Est Cr Clr Drug Dosing 50.24 mL/min Estimated GFR (MDRD) > 60 (>60) mL/min BUN/Creatinine Ratio 18.9 H (14-18) Glucose 113 (83-115) mg/dL Calcium 8.4 L (8.5-10.1) mg/dL Total Bilirubin 1.1 H (0.2-1.0) mg/dL AST 41 H (15-37) U/L ALT 22 (16-63) U/L Alkaline Phosphatase 63 (46-116) U/L Total Protein 5.9 L (6.4-8.2) g/dl Albumin 2.8 L (3.4-5.0) g/dl Globulin 3.1 gm/dL Albumin/Globulin Ratio 0.9 L (1-2) Blood Type A POSITIVE Gel Antibody Screen Negative Med Orders - Current: Current Medications Hydrocodone Bitart/Acetaminophen ([place] 325-5 Mg) 1 - 2 tab PO Q4H PRN PRN Reason: Pain Amlodipine Besylate (Norvasc) 5 mg PO DAILY [facility] Docusate Sodium (Colace) 100 mg PO BID [facility] Last Admin: 12/31/18 20:18 Dose: 100 mg Fentanyl (Sublimaze) 25 mcg IVPUSH Q5M PRN PRN Reason: Pain Hydrochlorothiazide (Hydrochlorothiazide) 12.5 mg PO DAILY [facility] Cefazolin Sodium/Dextrose 2 gm (/ Premix) 50 mls @ 100 mls/hr IV Q8H [facility] Stop: 01/01/19 12:29 Last Admin: 01/01/19 03:38 Dose: 100 mls/hr Ketorolac Tromethamine (Toradol) 15 mg IVPUSH Q6H PRN PRN Reason: Pain Lisinopril (Prinivil) 20 mg PO DAILY [facility] Rivaroxaban (Xarelto) 10 mg PO DAILY [facility] Sodium Chloride (Saline Flush) 10 ml FLUSH ASDIRECTED PRN PRN Reason: Keep Vein Open Zolpidem Tartrate (Ambien) 5 mg PO BEDTIME PRN PRN Reason: Insomnia Last Admin: 12/31/18 22:27 Dose: 5 mg Discontinued Medications Bupivacaine HCl (Sensorcaine-Mpf 0.75%) Confirm Administered Dose 30 ml .ROUTE .STK-MED ONE Stop: 12/31/18 09:24 Bupivacaine HCl (Marcaine 0.25%) Confirm Administered Dose 30 ml .ROUTE .STK- MED ONE Stop: 12/31/18 10:46 Last Admin: 12/31/18 13:53 Dose: 30 ml Cefazolin Sodium (Ancef) Confirm Administered Dose 2 gm .ROUTE .STK-MED ONE Stop: 12/31/18 09:19 Last Admin: 12/31/18 13:47 Dose: 2 gm Cefazolin Sodium (Ancef) Confirm Administered Dose 2 gm .ROUTE .STK-MED ONE Stop: 12/31/18 10:46 Morphine Sulfate 8 mg/Epinephrine HCl 0.3 mg/Cefuroxime Sodium 750 mg/Ketorolac Tromethamine 30 mg/Sodium Chloride 27.9 ml 0 mg .XX ONETIME ONE Stop: 12/31/18 11:01 Last Admin: 12/31/18 19:22 Dose: Not Given Ephedrine Sulfate (Ephedrine In Ns) Confirm Administered Dose 25 mg .ROUTE .STK- MED ONE Stop: 12/31/18 13:58 Lactated Ringer's (Ringers, Lactated) 1,000 mls @ 125 mls/hr IV ASDIRECTED ARVIN Last Admin: 12/31/18 10:08 Dose: 125 mls/hr Lidocaine HCl (Xylocaine-Mpf 1%) Confirm Administered Dose 4 mls @ as directed .ROUTE .STK-MED ONE Stop: 12/31/18 09:19 Lidocaine HCl (Xylocaine-Mpf 1%) Confirm Administered Dose 5 mls @ as directed .ROUTE .STK-MED ONE Stop: 12/31/18 09:24 Lactated Ringer's (Ringers, Lactated) Confirm Administered Dose 1,000 mls @ as directed .ROUTE .STK-MED ONE Stop: 12/31/18 13:34 Acetaminophen (Ofirmev) 65 mls @ 390 mls/hr IV NOW ONE Stop: 12/31/18 14:45 Last Admin: 12/31/18 14:56 Dose: 390 mls/hr Iodine (Iodine 2% Mild Tincture) Confirm Administered Dose 30 ml .ROUTE .STK- MED ONE Stop: 12/31/18 10:46 Last Admin: 12/31/18 13:45 Dose: 30 ml Ketamine HCl (Ketalar) Confirm Administered Dose 500 mg .ROUTE .STK-MED ONE Stop: 12/31/18 13:11 Lidocaine/Sodium Bicarbonate (Buffered Lidocaine 1% In Ns 8.4%) 0.25 ml IDERM ONETIME PRN PRN Reason: Prior to IV Start Stop: 12/31/18 16:00 Ondansetron HCl (Zofran) 4 mg IVPUSH ONETIME PRN PRN Reason: Nausea/Vomiting Stop: 12/31/18 21:00 Oxycodone/Acetaminophen (Percocet 325-5 Mg) 1 - 2 tab PO Q4H PRN PRN Reason: Pain Phenylephrine HCl (Phenylephrine In Ns 100 Mcg/Ml) Confirm Administered Dose 1 mg .ROUTE .STK-MED ONE Stop: 12/31/18 12:53 Phenylephrine HCl (Phenylephrine In Ns 100 Mcg/Ml) Confirm Administered Dose 1 mg .ROUTE .STK-MED ONE Stop: 12/31/18 12:55 Propofol (Diprivan 20 Ml) Confirm Administered Dose 400 mg .ROUTE .STK-MED ONE Stop: 12/31/18 09:19 Propofol (Diprivan 20 Ml) Confirm Administered Dose 200 mg .ROUTE .STK-MED ONE Stop: 12/31/18 13:45 Tranexamic Acid (Cyklokapron) Confirm Administered Dose 1,000 mg .ROUTE .STK- MED ONE Stop: 12/31/18 10:46 Last Admin: 12/31/18 13:55 Dose: 1,000 mg Vancomycin HCl (Vancomycin) Confirm Administered Dose 1 gm .ROUTE .STK-MED ONE Stop: 12/31/18 10:46 Last Admin: 12/31/18 13:55 Dose: 1 gm
[2019-01-01] MEDS: Docusate Sodium 100 MG Cap PO SCH (08:28)
[2019-01-01] MEDS: Potassium Chloride 20 MEQ Tab.ER PO SCH ×2 (08:31→11:38)
[2019-01-01] MEDS ORDERED: Hydrochlorothiazide 12.5 MG Cap PO SCH (09:00)
[2019-01-01] MEDS ORDERED: Lisinopril 20 MG Tab PO SCH (09:00)
[2019-01-01] MEDS ORDERED: amLODIPine 5 MG Tab PO SCH (09:00)
[2019-01-01] MEDS ORDERED: Rivaroxaban 10 MG Tab PO SCH (09:00)
[2019-01-01 13:18] VITALS: BP 130/75
--- NOTE | 2019-01-03 11:15 | PCM.OPNOTE ---
- General Post-Op/Procedure Note Date of Surgery/Procedure: 12/31/18 Operative Procedure(s): left total hip arthroplasty Pre Op Diagnosis: left hip osteoarthrosis Post-Op Diagnosis: Same Anesthesia Technique: Local, MAC, Spinal Primary Surgeon: Clay Sotomayor Anesthesia Provider: Ramandeep Luo Artist'S Model: Maria Del Carmen Epperson Artist'S Model: Lauren Curiel EBMarlen in mLs: 75 Complications: None Condition: Good Free Text/Narrative:: size 54 size 5 36+0
--- NOTE | 2019-01-03 12:29 | OR ---
DATE OF OPERATION: 12/31/2018 SURGEON: Clay Sotomayor MD OPERATION PERFORMED: Left total hip arthroplasty. PREOPERATIVE DIAGNOSIS: Left hip osteoarthrosis. POSTOPERATIVE DIAGNOSIS: Left hip osteoarthrosis. ANESTHESIA: Local MAC with spinal. ANESTHESIA PROVIDER: Ramandeep Luo CRNA. MOBILE TESTER: Maria Del Carmen Epperson PA-C and Lauren Curiel LPN. ESTIMATED BLOOD LOSS: 75 mL. COMPLICATIONS: None. CONDITION: Stable. IMPLANT: 1. Hemanth size 54 mm Tritanium acetabular cup. 2. [place] size 5 Accolade II stem. 3. [place] size 36 +0 femoral head. DESCRIPTION OF PROCEDURE: Patient was identified in the preop holding area. Proper site was marked and identified by the surgeon. The patient was taken back to the operating theater where after adequate anesthesia, the patient was placed in the right lateral decubitus position. Axillary roll was placed. All bony prominences well padded. Pegs were then placed and well padded. The patient's gluteal fold was parallel to the floor. Left hip was then sterilely prepped and draped in the usual sterile fashion. OR time-out was performed. The patient received 2 g of IV Ancef. At this time, standard posterior incision was made, centered over the greater trochanter. This was taken down to the IT band and gluteal fascia, which was incised along the incisional length. Charnley retractor was then placed. Short external rotators were identified and takedown of the short external rotators as well as capsule was done from the level of the piriformis down to the lesser trochanter. The hip was then dislocated. Neck cut was then completed and found to be adequate. Attention was turned to the acetabulum. Anterior and posterior acetabular retractors were then placed. The pulvinar was removed along with remaining labrum. Starting with a 48 reamer, I was able to ream up to a 54, which was found to have good adequate bony purchase. At this time, a 54 mm Tritanium acetabular cup was impacted into place in roughly 45 degrees of abduction and 20 to 30 degrees of anteversion. At this time, the 36 mm flat polyethylene liner was impacted into place. Attention was turned to the femur. Femoral elevator was placed. Starting with a box chisel out laterally, I then placed a starter awl down the canal. Starting with the 0 broach, I was able to broach up to a size 5 which was found to be rotationally and vertically stable. At this time, we trialed it and 0 was found to have adequate confucianism of leg length as well as be stable throughout range of motion. At this time, the size 5 Accolade II stem was impacted into place and a 36 +0 Biolox femoral head was then impacted into place. Hip was then relocated, and #5 Ethibond suture was used for closure of the short external rotators and capsule. A 1 L dilute Betadine solution was irrigated through the hip along with 3 L of pulse lavage irrigation with Ancef. Periarticular injection was then completed. Topical tranexamic acid as well as vancomycin powder was placed. #2 barbed suture was used for closure of IT band and gluteal fascia, 2- 0 Vicryl was used subcutaneously, and Prineo was used for the skin. The patient tolerated the procedure well, sent to PACU in stable condition. MMODAL /[id number]
== END 2019-01-01 16:25 | disposition home or self-care (01) | DRG 470 ==
LOC: JD.MS 09:29
PROVIDERS: ADMIT Orthopaedic Surgery; ATTEND Orthopaedic Surgery
PROC: 0SRB04Z Replacement of Left Hip Joint with Ceramic on Polyethylene Synthetic Substitute, Open Approach (ICD-10-PCS; principal; 2018-12-31)
DX: M16.12 Unilateral primary osteoarthritis, left hip (principal); I10 Essential (primary) hypertension; H54.7 Unspecified visual loss; K21.9 Gastro-esophageal reflux disease without esophagitis; G47.00 Insomnia, unspecified; E87.6 Hypokalemia; L98.9 Disorder of the skin and subcutaneous tissue, unspecified; Z87.891 Personal history of nicotine dependence; Z79.899 Other long term (current) drug therapy; Z87.11 Personal history of peptic ulcer disease
CPT/HCPCS: 01214; 36415; 73501-26-LT; 73501-LT; 80053; 85027; 86850; 86900; 86901; 87641; 97110-GP; 97116-GP; 97161-GP; 97165-GO; 97535-GO; A9270-GY; C1776; J0131; J0171; J0690; J0697; J1885; J2001; J2270; J2370; J2704; J3370; J3490; J7050; J7120

== ENCOUNTER 2019-01-10 22:55 | Emergency (ER) | payer MEDICARE, OTHER ==
[2019-01-10 23:05] VITALS: BP 169/81
--- NOTE | 2019-01-10 23:22 | EDM.PDOC ---
ED HPI GENERAL MEDICAL PROBLEM - General Chief Complaint: Gastrointestinal Problem Stated Complaint: RECTAL BLEEDING Time Seen by Provider: 01/10/19 23:13 - History of Present Illness INITIAL COMMENTS - FREE TEXT/NARRATIVE: 83-year-old male presents emergency room with rectal bleeding. This is been going on and off for a couple of days. The patient apparently developed some diarrhea about 3 days ago and then started noticing some bright red blood in 2 days ago this might be getting a little worse. The patient is not having any problems with dizziness or lightheadedness the patient is currently taking Xarelto 10 mg a day after his hip replacement 10 days ago. He is not having any other problems. - Related Data Allergies Allergy/AdvReac Type Severity Reaction Status Date / Time No Known Allergies Allergy Verified 12/31/18 15:38 Home Meds: Home Meds Lisinopril/Hydrochlorothiazide [Lisinopril-Hctz 20-12.5 mg Tab] 1 tab PO DAILY 12/28/18 [History] Zolpidem Tartrate [Ambien] 5 mg PO BEDTIME PRN 12/28/18 [History] amLODIPine [Norvasc] 5 mg PO DAILY 12/28/18 [History] Acetaminophen/HYDROcodone [[place] 325-5 MG] 1 - 2 tab PO Q6H PRN #60 tablet 12/31 [Rx] Docusate Sodium [Colace] 100 mg PO BID cap 12/31/18 [Rx] Rivaroxaban [Xarelto] 10 mg PO DAILY #35 tablet 12/31/18 [Rx] Past Medical History HEENT History: Reports: Impaired Vision, Other (See Below) Other HEENT History: missing teeth. Wears eyeglasses. Cardiovascular History: Reports: Hypertension Respiratory History: Reports: None Gastrointestinal History: Reports: Gastritis, GERD, GI Bleed, PUD Other Gastrointestinal History: gastric ulcer. Genitourinary History: Reports: None ARCHITECTURE MANAGER History: Reports: None Musculoskeletal History: Reports: Arthritis, Osteoarthritis Neurological History: Reports: None Psychiatric History: Reports: Other (See Below) Other Psychiatric History: insomnia Endocrine/Metabolic History: Reports: None Hematologic History: Reports: Anemia, Blood Transfusion(s) Immunologic History: Reports: None Oncologic (Cancer) History: Reports: None Dermatologic History: Reports: Other (See Below) Other Dermatologic History: skin disorder - Infectious Disease History Infectious Disease History: Reports: Chicken Pox, Measles, Mumps - Past Surgical History Head Surgeries/Procedures: Reports: None Cardiovascular Surgical History: Reports: None Respiratory Surgical History: Reports: None GI Surgical History: Reports: EGD Male Surgical History: Reports: None Neurological Surgical History: Reports: None Musculoskeletal Surgical History: Reports: None Oncologic Surgical History: Reports: None Social & Family History - Caffeine Use Caffeine Use: Reports: None - Living Situation & Occupation Living situation: Reports: Single Occupation: Retired ED ROS GENERAL - Review of Systems Review Of Systems: See Below Constitutional: Reports: No Symptoms HEENT: Reports: No Symptoms Respiratory: Reports: No Symptoms Cardiovascular: Reports: No Symptoms Endocrine: Reports: No Symptoms GI/Abdominal: Reports: Diarrhea, Hematochezia. Denies: Abdominal Pain, Constipation, Nausea, Vomiting : Reports: No Symptoms Musculoskeletal: Reports: No Symptoms Skin: Reports: No Symptoms Neurological: Reports: No Symptoms Psychiatric: Reports: No Symptoms ED EXAM, GI/ABD - Physical Exam Exam: See Below Exam Limited By: No Limitations General Appearance: Alert, No Apparent Distress Head: Atraumatic, Normocephalic Neck: Normal Inspection, Supple, Non-Tender, Full Range of Motion Respiratory/Chest: No Respiratory Distress, Lungs Clear, Normal Breath Sounds, No Accessory Muscle Use, Chest Non-Tender Cardiovascular: Normal Peripheral Pulses, Regular Rate, Rhythm, No Edema, No Gallop, No JVD, No Murmur, No Rub, Other (His heart rate is in the low 80s at the time of my exam I noticed he was mildly tachycardic upon admission) GI/Abdominal Exam: Normal Bowel Sounds, Soft, Non-Tender, No Distention Rectal (Males) Exam: Heme + Stool (Weakly positive), Other (Prostate very enlarged) Back Exam: Normal Inspection. No: CVA Tenderness (L), CVA Tenderness (R) Extremities: Normal Inspection, No Pedal Edema Neurological: Alert, Oriented. No: Normal Cognition Psychiatric: Normal Affect, Normal Mood Skin Exam: Warm, Dry, Intact Course - Vital Signs Last Recorded V/S: Last Vital Signs Temp 36.7 C 01/10/19 23:02 Pulse 111 H 01/10/19 23:02 Resp 18 01/10/19 23:02 BP 169/81 H 01/10/19 23:02 Pulse Ox 100 01/10/19 23:02 - Orders/Labs/Meds Orders: Active Orders 24 hr Category Date Time Status EKG Documentation Completion [RC] STAT Care 01/10/19 23:22 Active Labs: Laboratory Tests 01/10/19 01/10/19 01/10/19 Range/Units 23:22 23:25 23:25 WBC 8.67 (4.23-9.07) K/mm3 RBC 3.57 L (4.63-6.08) M/mm3 Hgb 11.7 L D (13.7-17.5) gm/L Hct 34.5 L (40.1-51.0) % MCV 96.6 H (79.0-92.2) fl MCH 32.8 H (25.7-32.2) pg MCHC 33.9 (32.2-35.5) g/dl RDW Std Deviation 46.1 H (35.1-43.9) fL Plt Count 323 (163-337) K/mm3 MPV 9.3 L (9.4-12.3) fl Neutrophils % (Manual) 72 H (40-60) % Band Neutrophils % 2 (0-10) % Lymphocytes % (Manual) 15 L (20-40) % Atypical Lymphs % 0 % Monocytes % (Manual) 10 (2-10) % Eosinophils % (Manual) 1 (0.8-7.0) % Basophils % (Manual) 0 L (0.2-1.2) Platelet Estimate Adequate Plt Morphology Comment Normal Anisocytosis 1+ slight Macrocytosis 2+ moderate RBC Morph Comment Not Reportable PT 12.8 H (9.5-12.1) SECONDS INR 1.18 APTT 31 (24-31) SECONDS Sodium (136-145) mEq/L Potassium (3.5-5.1) mEq/L Chloride (98-107) mEq/L Carbon Dioxide (21-32) mEq/L Anion Gap (5-15) BUN (7-18) mg/dL Creatinine (0.7-1.3) mg/dL Est Cr Clr Drug Dosing mL/min Estimated GFR (MDRD) (>60) mL/min BUN/Creatinine Ratio (14-18) Glucose (83-115) mg/dL Calcium (8.5-10.1) mg/dL Total Bilirubin (0.2-1.0) mg/dL AST (15-37) U/L ALT (16-63) U/L Alkaline Phosphatase (46-116) U/L Total Protein (6.4-8.2) g/dl Albumin (3.4-5.0) g/dl Globulin gm/dL Albumin/Globulin Ratio (1-2) Urine Color Yellow (Yellow) Urine Appearance Clear (Clear) Urine pH 6.0 (5.0-8.0) Ur Specific [place] 1.015 (1.005-1.030) Urine Protein Negative (Negative) Urine Glucose (UA) Negative (Negative) Urine Ketones Trace H (Negative) Urine Occult Blood Trace-intact H (Negative) Urine Nitrite Negative (Negative) Urine Bilirubin Negative (Negative) Urine Urobilinogen 0.2 (0.2-1.0) Ur Leukocyte Esterase Negative (Negative) Urine RBC 0-5 (0-5) /hpf Urine WBC 0-5 (0-5) /hpf Ur Squamous Epith Cells 0-5 (0-5) /hpf Urine Bacteria Not seen (FEW) /hpf Hyaline Casts 0-5 (0-5) /lpf Urine Mucus Few (FEW) /hpf Blood Type Gel Antibody Screen 01/10/19 01/10/19 Range/Units 23:25 23:25 WBC (4.23-9.07) K/mm3 RBC (4.63-6.08) M/mm3 Hgb (13.7-17.5) gm/L Hct (40.1-51.0) % MCV (79.0-92.2) fl MCH (25.7-32.2) pg MCHC (32.2-35.5) g/dl RDW Std Deviation (35.1-43.9) fL Plt Count (163-337) K/mm3 MPV (9.4-12.3) fl Neutrophils % (Manual) (40-60) % Band Neutrophils % (0-10) % Lymphocytes % (Manual) (20-40) % Atypical Lymphs % % Monocytes % (Manual) (2-10) % Eosinophils % (Manual) (0.8-7.0) % Basophils % (Manual) (0.2-1.2) Platelet Estimate Plt Morphology Comment Anisocytosis Macrocytosis RBC Morph Comment PT (9.5-12.1) SECONDS INR APTT (24-31) SECONDS Sodium 140 (136-145) mEq/L Potassium 3.5 (3.5-5.1) mEq/L Chloride 103 (98-107) mEq/L Carbon Dioxide 26 (21-32) mEq/L Anion Gap 14.5 (5-15) BUN 21 H (7-18) mg/dL Creatinine 1.0 (0.7-1.3) mg/dL Est Cr Clr Drug Dosing 46.78 mL/min Estimated GFR (MDRD) > 60 (>60) mL/min BUN/Creatinine Ratio 21.0 H (14-18) Glucose 115 (83-115) mg/dL Calcium 9.2 (8.5-10.1) mg/dL Total Bilirubin 1.1 H (0.2-1.0) mg/dL AST 26 (15-37) U/L ALT 25 (16-63) U/L Alkaline Phosphatase 69 (46-116) U/L Total Protein 6.6 (6.4-8.2) g/dl Albumin 2.8 L (3.4-5.0) g/dl Globulin 3.8 gm/dL Albumin/Globulin Ratio 0.7 L (1-2) Urine Color (Yellow) Urine Appearance (Clear) Urine pH (5.0-8.0) Ur Specific [place] (1.005-1.030) Urine Protein (Negative) Urine Glucose (UA) (Negative) Urine Ketones (Negative) Urine Occult Blood (Negative) Urine Nitrite (Negative) Urine Bilirubin (Negative) Urine Urobilinogen (0.2-1.0) Ur Leukocyte Esterase (Negative) Urine RBC (0-5) /hpf Urine WBC (0-5) /hpf Ur Squamous Epith Cells (0-5) /hpf Urine Bacteria (FEW) /hpf Hyaline Casts (0-5) /lpf Urine Mucus (FEW) /hpf Blood Type A POSITIVE Gel Antibody Screen Negative - Re-Assessments/Exams Free Text/Narrative Re-Assessment/Exam: 01/11/19 01:02 Patient's case has remained stable hernia emergency department he has had no rectal bleeding. Case discussed with our on-call surgeon Dr. Morrison and our hospitalist Dr. Dorsey who both agree holding his Xarelto and having him follow up with his primary physician and his orthopedic surgeon tomorrow would be most prudent Departure - Departure Time of Disposition: 01:05 Disposition: Home, Self-Care 01 Clinical Impression: Rectal bleeding - Discharge Information Referrals: Cesar Ballard MD [Primary Care Provider] - Forms: ED Department Discharge Additional Instructions: Return to the emergency room with any questions problems worsening symptoms. Return with worsening rectal bleeding. Follow-up with your doctor tomorrow and discuss this with your orthopedic surgeon. Hold the xarelto for now - My Orders Last 24 Hours: My Active Orders 01/10/19 23:22 EKG Documentation Completion [RC] STAT - Assessment/Plan Last 24 Hours: My Active Orders 01/10/19 23:22 EKG Documentation Completion [RC] STAT
== END 2019-01-11 01:15 | disposition home or self-care (01) ==
LOC: JD.ED 22:55
DX: K62.5 Hemorrhage of anus and rectum (principal); I10 Essential (primary) hypertension; M19.90 Unspecified osteoarthritis, unspecified site; Z79.899 Other long term (current) drug therapy
CPT/HCPCS: 36415; 80053; 81001; 85007; 85027; 85610; 85730; 86850; 86900; 86901; 93005; 93010; 99282; 99283-25

== ENCOUNTER 2020-10-08 10:50 | Day surgery (SDC) | payer MEDICARE, OTHER ==
[~2020-10-08 10:50] MED LIST changes: -Acetaminophen/oxyCODONE 325-5 MG Tab PO PRN; -Bupivacaine 0.75% 30 ML SDV ONE; +Cefuroxime 10 MG/ML SYRINGE EYELF SCH; -Ketorolac 15 MG/ML SDV IVPUSH PRN; -Lactated Ringers 1,000 ML IV SCH; -Lidocaine 1% 4 ML ONE; +Lidocaine 1% PF 2 ML SDV INJECT SCH; -Lidocaine 1%/Sod Bicarbonate in NS 8.4% 1 ML Syringe IDERM PRN; +Phenylephrine 2.5% Ophth Soln 15 ML Bot EYELF SCH; +Phenylephrine 2.5% Ophth Soln 2 ML Bot EYELF SCH; +Pilocarpine 4% Ophth Soln 15 ML Bot EYELF SCH; -Propofol 200 MG/20 ML SDV ONE; -Sodium Chloride 0.9% 10 ML Syringe FLUSH PRN; -ceFAZolin 1 GM Vial ONE; -fentaNYL 100 MCG/2 ML SDV IVPUSH PRN
[2020-10-08] MEDS: Polymyxin B/Trimethoprim 10 ML Bottle EYELF SCH ×3 (11:34→13:06)
[2020-10-08] MEDS: Brimonidine 0.2% Ophth Soln 5 ML Bottle EYELF SCH ×3 (11:44→13:06)
--- NOTE | 2020-10-08 11:47 | PCM.PREANE ---
Preanesthetic Assessment - Anesthesia/Transfusion/Family Hx Anesthesia History: Prior Anesthesia Without Reaction Family History of Anesthesia Reaction: No Transfusion History: No Prior Transfusion(s) - Review of Systems General: No Symptoms Pulmonary: No Symptoms Cardiovascular: No Symptoms Gastrointestinal: No Symptoms Neurological: No Symptoms Other: Reports: None - Physical Assessment NPO Status Date: 10/07/20 NPO Status Time: 22:00 Vital Signs: Last Vital Signs Temp 36.6 C 10/08/20 11:25 Pulse 72 10/08/20 11:25 Resp 16 10/08/20 11:25 BP 145/82 H 10/08/20 11:25 Pulse Ox 98 10/08/20 11:25 Height: 1.7 m Weight: 63.503 kg ASA Class: 2 Mental Status: Alert & Oriented x3 Airway Class: Mallampati = 2 Dentition: Reports: Partial (upper) Thyro-Mental Finger Breadths: 3 Mouth Opening Finger Breadths: 3 ROM/Head Extension: Full Lungs: Clear to Auscultation, Normal Respiratory Effort Cardiovascular: Regular Rate, Regular Rhythm - Allergies Allergies/Adverse Reactions: Allergies Allergy/AdvReac Type Severity Reaction Status Date / Time No Known Allergies Allergy Verified 10/07/20 09:54 - Acknowledgements Anesthesia Type Planned: MAC Pt an Appropriate Candidate for the Planned Anesthesia: Yes Alternatives and Risks of Anesthesia Discussed w Pt/Guardian: Yes Pt/Guardian Understands and Agrees with Anesthesia Plan: Yes PreAnesthesia Questionnaire HEENT History: Reports: Impaired Vision, Other (See Below) Other HEENT History: missing teeth. Wears eyeglasses. Cardiovascular History: Reports: Hypertension Respiratory History: Reports: None Gastrointestinal History: Reports: Gastritis, GERD, GI Bleed, PUD Other Gastrointestinal History: gastric ulcer. 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 Musculoskeletal History: Reports: Arthritis, Osteoarthritis Neurological History: Reports: None Psychiatric History: Reports: Other (See Below) Other Psychiatric History: insomnia Endocrine/Metabolic History: Reports: None Hematologic History: Reports: Anemia, Blood Transfusion(s) Immunologic History: Reports: None Oncologic (Cancer) History: Reports: None Dermatologic History: Reports: Other (See Below) Other Dermatologic History: skin disorder - Infectious Disease History Infectious Disease History: Reports: Chicken Pox, Measles, Mumps - Past Surgical History Head Surgeries/Procedures: Reports: None Cardiovascular Surgical History: Reports: None Respiratory Surgical History: Reports: None GI Surgical History: Reports: EGD Male Surgical History: Reports: None Neurological Surgical History: Reports: None Musculoskeletal Surgical History: Reports: None Oncologic Surgical History: Reports: None - SUBSTANCE USE Tobacco Use Status *Q: Former Tobacco User - HOME MEDS Home Medications: Home Meds Lisinopril/Hydrochlorothiazide [Lisinopril-Hctz 20-12.5 mg Tab] 1 tab PO DAILY 12/28/18 [History] Zolpidem Tartrate [Ambien] 5 mg PO BEDTIME PRN 12/28/18 [History] amLODIPine [Norvasc] 5 mg PO DAILY 12/28/18 [History] Docusate Sodium [Colace] 100 mg PO BID cap 12/31/18 [Rx] - CURRENT (IN HOUSE) MEDS Current Meds: Current Medications Brimonidine Tartrate (Alphagan 0.2% Ophth Soln) 0 ml EYELF ASDIRECTED ARVIN Stop: 10/08/20 18:00 Cefuroxime Sodium (Zinacef) 0 mg EYELF ASDIRECTED ARVIN Stop: 10/08/20 18:00 Lidocaine HCl (Xylocaine-Mpf 1%) 0 ml INJECT ASDIRECTED ARVIN Stop: 10/08/20 18:00 Phenylephrine HCl (Carlos-Synephrine 2.5% Ophth Soln) 0 ml EYELF ASDIRECTED ARVIN Stop: 10/08/20 18:00 Pilocarpine HCl (Pilocar 4% Ophth Soln) 0 ml EYELF ASDIRECTED ARVIN Stop: 10/08/20 18:00 Polymyxin/Trimethoprim Sulfate (Polytrim Ophth Soln) 0 ml EYELF ASDIRECTED ARVIN Stop: 10/08/20 18:00 Last Admin: 10/08/20 11:34 Dose: 1 drop Documented by: Tetracaine HCl (Tetracaine 0.5% Steri-Unit Concepcion) 0 ml EYEBOTH ASDIRECTED ARVIN Stop: 10/08/20 18:00 Tropicamide (Mydriacyl 1% Ophth Soln) 0 ml EYELF ASDIRECTED ARVIN Stop: 10/08/20 18:00 Discontinued Medications Phenylephrine HCl (Carlos-Synephrine 2.5% Ophth Soln) 0 ml EYELF ASDIRECTED ARVIN Stop: 10/08/20 18:00 Phenylephrine HCl (Carlos-Synephrine 2.5% Ophth Soln) 0 ml EYELF ASDIRECTED ARVIN
[2020-10-08] MEDS: Phenylephrine 2.5% Ophth Soln 15 ML Bot EYELF SCH ×4 (11:48→12:20)
[2020-10-08] MEDS: Tropicamide 1% Ophth Soln 15 ML Bottle EYELF SCH ×4 (11:52→12:23)
[2020-10-08] MEDS: Tetracaine HCl/PF 0.5% 4 ML Bottle EYEBOTH SCH ×2 (12:32→12:54)
--- NOTE | 2020-10-08 13:08 | PCM48HPAN ---
Post Anesthesia Note - EVALUATION WITHIN 48HRS OF ANESTHETIC Vital Signs in Normal Range: Yes Patient Participated in Evaluation: Yes Respiratory Function Stable: Yes Airway Patent: Yes Cardiovascular Function Stable: Yes Hydration Status Stable: Yes Pain Control Satisfactory: Yes Nausea and Vomiting Control Satisfactory: Yes Mental Status Recovered: Yes Vital Signs: Last Vital Signs Temp 36.6 C 10/08/20 11:25 Pulse 72 10/08/20 11:25 Resp 16 10/08/20 11:25 BP 145/82 H 10/08/20 11:25 Pulse Ox 98 10/08/20 11:25
[2020-10-08 13:26] VITALS: BP 106/63; PULSE 76
== END 2020-10-08 13:23 | disposition home or self-care (01) ==
LOC: JD.SDS 10:50
PROVIDERS: ATTEND Ophthalmology
DX: H25.813 Combined forms of age-related cataract, bilateral (principal); H11.042 Peripheral pterygium, stationary, left eye; H35.363 Drusen (degenerative) of macula, bilateral; H35.3131 Nonexudative age-related macular degeneration, bilateral, early dry stage; H16.103 Unspecified superficial keratitis, bilateral; H16.223 Keratoconjunctivitis sicca, not specified as Sjogren's, bilateral; H02.831 Dermatochalasis of right upper eyelid; H57.813 Brow ptosis, bilateral; Z79.899 Other long term (current) drug therapy; I10 Essential (primary) hypertension; Z87.891 Personal history of nicotine dependence
CPT/HCPCS: 66984; J0697; J2001; V2632

== ENCOUNTER 2020-11-05 07:21 | Day surgery (SDC) | payer MEDICARE, OTHER ==
[2020-11-05] MEDS: Polymyxin B/Trimethoprim 10 ML Bottle EYERT SCH ×4 (07:32→09:17)
[2020-11-05] MEDS: Brimonidine 0.2% Ophth Soln 5 ML Bottle EYERT SCH ×4 (07:40→09:17)
--- NOTE | 2020-11-05 07:43 | PCM.PREANE ---
Preanesthetic Assessment - Procedure Proposed Procedure: Right Cataract Extraction with IOL. - Anesthesia/Transfusion/Family Hx Anesthesia History: Prior Anesthesia Without Reaction Family History of Anesthesia Reaction: No Transfusion History: Prior Transfusion Without Reaction Intubation History: Unknown - Review of Systems General: No Symptoms Pulmonary: No Symptoms (quit smoking 1994) Cardiovascular: No Symptoms (HTN), Dyspnea on Exertion Gastrointestinal: No Symptoms Neurological: No Symptoms, Numbness (left foot on occasion.) Other: Reports: None - Physical Assessment NPO Status Date: 11/04/20 NPO Status Time: 21:00 Vital Signs: HR: 68 Sat: 97% Resp: 16 B/P: 144/94 Temp: 98.1 Height: 1.7 m Weight: 63.503 kg ASA Class: 2 Mental Status: Alert & Oriented x3 Airway Class: Mallampati = 2 Dentition: Reports: Normal Dentition, [place](s), [place] Thyro-Mental Finger Breadths: 3 Mouth Opening Finger Breadths: 3 ROM/Head Extension: Full Lungs: Clear to Auscultation, Normal Respiratory Effort Cardiovascular: Regular Rate, Regular Rhythm, No Murmurs - Allergies Allergies/Adverse Reactions: Allergies Allergy/AdvReac Type Severity Reaction Status Date / Time No Known Allergies Allergy Verified 11/04/20 12:28 - Anesthesia Plan Pre-Op Medication Ordered: None - Acknowledgements Anesthesia Type Planned: MAC Pt an Appropriate Candidate for the Planned Anesthesia: Yes Alternatives and Risks of Anesthesia Discussed w Pt/Guardian: Yes Pt/Guardian Understands and Agrees with Anesthesia Plan: Yes PreAnesthesia Questionnaire HEENT History: Reports: Impaired Vision, Other (See Below) Other HEENT History: missing teeth. Wears eyeglasses. Cardiovascular History: Reports: Hypertension Respiratory History: Reports: None Gastrointestinal History: Reports: Gastritis, GERD, GI Bleed, PUD Other Gastrointestinal History: gastric ulcer. 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 Musculoskeletal History: Reports: Arthritis, Osteoarthritis Neurological History: Reports: None Psychiatric History: Reports: Other (See Below) Other Psychiatric History: insomnia Endocrine/Metabolic History: Reports: None Hematologic History: Reports: Anemia, Blood Transfusion(s) Immunologic History: Reports: None Oncologic (Cancer) History: Reports: None Dermatologic History: Reports: Other (See Below) Other Dermatologic History: skin disorder - Infectious Disease History Infectious Disease History: Reports: Chicken Pox, Measles, Mumps - Past Surgical History Head Surgeries/Procedures: Reports: None Cardiovascular Surgical History: Reports: None Respiratory Surgical History: Reports: None GI Surgical History: Reports: EGD Male Surgical History: Reports: None Neurological Surgical History: Reports: None Musculoskeletal Surgical History: Reports: None Oncologic Surgical History: Reports: None - HOME MEDS Home Medications: Home Meds Lisinopril/Hydrochlorothiazide [Lisinopril-Hctz 20-12.5 mg Tab] 1 tab PO DAILY 12/28/18 [History] Zolpidem Tartrate [Ambien] 5 mg PO BEDTIME PRN 12/28/18 [History] amLODIPine [Norvasc] 5 mg PO DAILY 12/28/18 [History] Docusate Sodium [Colace] 100 mg PO BID cap 12/31/18 [Rx] - CURRENT (IN HOUSE) MEDS Current Meds: Current Medications Brimonidine Tartrate (Alphagan 0.2% Ophth Soln) 0 ml EYERT ASDIRECTED ARVIN Stop: 11/05/20 18:00 Cefuroxime Sodium (Zinacef) 0 mg EYERT ASDIRECTED ARVIN Stop: 11/05/20 18:00 Lidocaine HCl (Xylocaine-Mpf 1%) 0 ml INJECT ASDIRECTED ARVIN Stop: 11/05/20 18:00 Phenylephrine HCl (Carlos-Synephrine 2.5% Ophth Soln) 0 ml EYERT ASDIRECTED ARVIN Stop: 11/05/20 18:00 Pilocarpine HCl (Pilocar 4% Ophth Soln) 0 ml EYERT ASDIRECTED ARVIN Stop: 11/05/20 18:00 Polymyxin/Trimethoprim Sulfate (Polytrim Ophth Soln) 0 ml EYERT ASDIRECTED ARVIN Stop: 11/05/20 18:00 Last Admin: 11/05/20 07:32 Dose: 1 drop Documented by: Tetracaine HCl (Tetracaine 0.5% Steri-Unit Concepcion) 0 ml EYEBOTH ASDIRECTED ARVIN Stop: 11/05/20 18:00 Tropicamide (Mydriacyl 1% Ophth Soln) 0 ml EYERT ASDIRECTED ARVIN Stop: 11/05/20 18:00
[2020-11-05] MEDS: Phenylephrine 2.5% Ophth Soln 15 ML Bot EYERT SCH ×6 (07:45→08:59)
[2020-11-05] MEDS: Tropicamide 1% Ophth Soln 15 ML Bottle EYERT SCH ×4 (07:50→08:48)
[2020-11-05] MEDS: Tetracaine HCl/PF 0.5% 4 ML Bottle EYEBOTH SCH ×3 (08:00→09:04)
[2020-11-05] MEDS: Cefuroxime 10 MG/ML SYRINGE EYERT SCH ×2 (08:01→09:16)
[2020-11-05] MEDS: Lidocaine 1% PF 2 ML SDV INJECT SCH ×2 (08:01→09:04)
[2020-11-05] MEDS: Pilocarpine 4% Ophth Soln 15 ML Bot EYERT SCH ×2 (08:02→09:17)
--- NOTE | 2020-11-05 09:18 | PCM48HPAN ---
Post Anesthesia Note - EVALUATION WITHIN 48HRS OF ANESTHETIC Vital Signs in Normal Range: Yes Patient Participated in Evaluation: Yes Respiratory Function Stable: Yes Airway Patent: Yes Cardiovascular Function Stable: Yes Hydration Status Stable: Yes Pain Control Satisfactory: Yes Nausea and Vomiting Control Satisfactory: Yes Mental Status Recovered: Yes
[2020-11-05 10:30] VITALS: BP 110/67
[2020-11-05 12:30] VITALS: PULSE 68
== END 2020-11-05 09:27 | disposition home or self-care (01) ==
LOC: JD.SDS 07:21
PROVIDERS: ATTEND Ophthalmology
DX: H25.811 Combined forms of age-related cataract, right eye (principal); H11.042 Peripheral pterygium, stationary, left eye; H35.3131 Nonexudative age-related macular degeneration, bilateral, early dry stage; H57.813 Brow ptosis, bilateral; H02.834 Dermatochalasis of left upper eyelid; H02.831 Dermatochalasis of right upper eyelid; I10 Essential (primary) hypertension; Z87.891 Personal history of nicotine dependence; Z79.899 Other long term (current) drug therapy; Z96.1 Presence of intraocular lens
CPT/HCPCS: 66984; J0697; V2632